=== PATIENT | female | born 1970 | race Caucasian/White ===

== ENCOUNTER 2020-02-06 07:03 | Day surgery (SDC) | payer OTHER, SELFPAY ==
--- NOTE | 2020-02-05 10:29 | P.CONAN_ITS ---
Documented by User: Erin Stephens 02/05/20 10:30 HPI - Anesthesia Eval Consult details Narrative: 49yo F for colonoscopy FOR[facility] Past Medical History Medical History (Updated 02/06/20 @ 08:28 by Chio Ho) Allergic rhinitis HTN (hypertension) Hypothyroidism Morbid obesity Family History Family History (Updated 01/26/20 @ 11:31 by DEMARIO Kessler) Father Hypertension Cardiac disease Mother Hypertension Cardiac disease Smoker Cancer Maternal Aunt Breast cancer Brother Asthma Surgical History Surgical History History of tonsillectomy Hx of myringotomy Social History Social History Smoking Status: Never smoker Second Hand Smoke Exposure: No Use of substances other than those prescribed or required for medical reasons: Yes Substance Use Frequency: Occasionally Have you been hit, kicked, punched, or otherwise hurt by someone within the past year? If so, by whom?: No Advance Directives: No Advance Directives Information Provided: Yes Meds Allergies Allergy/AdvReac Type Severity Reaction Status Date / Time No Known Allergies Allergy Verified 01/26/20 11:28 Home Medications Medication Instructions Recorded Confirmed Type hydrochlorothiazide 1 tab PO DAILY 02/02/20 02/06/20 History levothyroxine 1 tab PO DAILY 02/02/20 02/02/20 History lisinopril 1 tab PO DAILY 02/02/20 02/02/20 History Exam Exam Date and Time: February 05, 2020 1029 Assessment and Plan Assessment Anesthesia Assessment: Chart Reviewed Documented by User: Chio Ho 02/06/20 08:36 [facility] Past Medical History Medical History (Updated 02/06/20 @ 08:28 by Chio Ho) Allergic rhinitis HTN (hypertension) Hypothyroidism Morbid obesity Family History Family History (Updated 01/26/20 @ 11:31 by DEMARIO Kessler) Father Hypertension Cardiac disease Mother Hypertension Cardiac disease Smoker Cancer Maternal Aunt Breast cancer Brother Asthma Family history of problems with anesthesia: No Surgical History Surgical History History of tonsillectomy Hx of myringotomy History of Problems with Anesthesia: No Social History Social History Smoking Status: Never smoker Second Hand Smoke Exposure: No Use of substances other than those prescribed or required for medical reasons: Yes Substance Use Frequency: Occasionally Have you been hit, kicked, punched, or otherwise hurt by someone within the past year? If so, by whom?: No Advance Directives: No Advance Directives Information Provided: Yes Meds Allergies Allergy/AdvReac Type Severity Reaction Status Date / Time No Known Allergies Allergy Verified 01/26/20 11:28 Home Medications Medication Instructions Recorded Confirmed Type hydrochlorothiazide 1 tab PO DAILY 02/02/20 02/06/20 History levothyroxine 1 tab PO DAILY 02/02/20 02/02/20 History lisinopril 1 tab PO DAILY 02/02/20 02/02/20 History Exam Height,Weight and Vital Signs: Vital Signs Temp Pulse Resp BP Pulse Ox 02/06/20 07:36 97.0 F 80 18 113/73 97 Pertinent Lab Results Pertinent Lab Results: Denies . Airway Mallampati Class: II TM Dist: >3cm Heart: RRR Lungs: CTAB. Diminished. Assessment and Plan Assessment Anesthesia Assessment: Anesthesia Plan Discussed and Chart Reviewed Final Anesthetic Review NPO: Yes ASA Class: III Final Preanesthetic Review: No Changes in Pt Med Stat, Meds/Allgs Chart Reviewed, Consent Obtained/Reviewed and Anes Risks/Benef Reviewed Patient Risk: Intermediate Procedure Risk: Low Anesthetic Plan Anesthetic Plan: MAC: Disposition: Standard PACU
[2020-02-06 07:25] VITALS: BMI 54.9
[2020-02-06 07:36] VITALS: BP 113/73; PULSE 80; RESP 18; TEMP 36.1; O2SAT 97
[2020-02-06] MEDS: Lactated Ringers 1,000 ML 100 ML IVCONT (07:55)
--- NOTE | 2020-02-06 09:17 | MHC.SHP ---
Pre-Procedural Eval Section A The patient is an INPATIENT: No The History & Physical has been completed within 30 days and I have reviewed it.: No Section B Chief Complaint: Screening Details of Present Illness: Colon cancer screening. No changes from April Preop Relevant Family History (Specify if Yes): No Relevant Social History: None Present Medications: see Short Stay Collaborative assessment Medical History: Significant History (Morbid Obesity, Hypertension Hypothyroid) History of Previous Operations: No relevant previous surgery Allergies: Allergies Allergy/AdvReac Type Severity Reaction Status Date / Time No Known Allergies Allergy Verified 01/26/20 11:28 Review of Systems Sugical H&P ROS: Negative: Constitution, Cardiovascular, Respiratory, Allergic/Immunologic and Gastrointestinal Review of Systems Comment: General ROS is negative Exam Surgical H&P Exam: Normal: HEENT, Normal: Heart, Normal: Lungs and Normal: Extremities Plan Diagnosis/Plan: Unchanged Patient has been examined and remains a candidate for the planned procedure--YES
--- NOTE | 2020-02-06 09:28 | PM.PROC ---
Brief Operative Note Date of procedure: 02/06/20 Pre-op diagnosis: Colon Cancer Screening; Morbid Obesity Post-op diagnosis: other (NORMAL EXAM) Procedure: Colonoscopy Anesthesia: MAC ([place]) Surgeon: Claudette Reyes Estimated blood loss (mL): 0 Pathology: none sent Condition: stable Disposition: PACU
[2020-02-06 10:01] VITALS: BP 116/67; PULSE 80; RESP 16; TEMP 36.7; O2SAT 99
[2020-02-06 10:11] VITALS: BP 125/67; PULSE 65; RESP 18; TEMP 36.6; O2SAT 98
--- NOTE | 2020-02-06 10:23 | HO.POSTANES ---
Post Anesthesia Evaluation Post Anesthesia Evaluation Vital Signs: Vital Signs Temp Pulse Resp BP Pulse Ox 02/06/20 10:11 98 F 65 18 125/67 98 02/06/20 10:01 98.1 F 80 16 116/67 99 02/06/20 07:36 97.0 F 80 18 113/73 97 Anesthesia: Monitored Mental Status: Awake Pain Control: Satisfactory Nausea/Vomiting: None Hydration: Adequate Anesthesia-Related Issues: No Anes. Related Issues
--- NOTE | 2020-02-06 12:00 | OP_ITS ---
SURGEON: Claudette Reyes MD PREOPERATIVE DIAGNOSIS: Colon cancer screening, morbid obesity. POSTOPERATIVE DIAGNOSIS: Colonoscopically negative, Question raised of significant Sleep Apnea. PROCEDURE PERFORMED: Colonoscopy. ESTIMATED BLOOD LOSS: No blood loss. COMPLICATIONS: No complications. ANESTHESIA: Monitored. ANESTHESIOLOGIST: Jorge Gray CRNA.. ASSISTANTS: No assistant professor of mathematics. SPECIMENS:NONE AIR DEODORIZER SERVICER: Dr. Reyes. CONDITION: Postprocedure, stable. FINDINGS: Digital rectal exam revealed sphincter tone to be adequate. Video colonoscope was introduced without difficulty, navigated into the rectosigmoid area. There were telescoping of the sigmoid colon with some suggestion of possibility of prolapse present. The scope was slowly moved through that area and up to the descending, transverse, ascending colon, down into the cecal cap. Appendiceal orifice was seen. Ileocecal valve was well seen. The prep was excellent. Slow rotational views on withdrawing the scope, no mucosal lesions were seen. Anorectal verge was clear. PLAN AND CURRENT RECOMMENDATIONS: Repeat asymptomatic screening in a non-high risk patient with no family history in this 10 years. NOTE, this patient does appear to have significant Sleep Apnea: Consideration for sleep study to be ordered. SPECIMEN: No specimen was removed. GRAFT OR IMPLANTS: No grafts or implants. Claudette Reyes MD MEN/MODL / [id number] MTDD
== END 2020-02-06 10:55 | disposition home or self-care (01) ==
PROVIDERS: PCP Internal Medicine; Visit Provider Internal Medicine Gastroenterology
PROC: 0DJD8ZZ Inspection of Lower Intestinal Tract, Via Natural or Artificial Opening Endoscopic (ICD-10-PCS; CPT 45378; principal; 2020-02-06 08:20)
DX: Z12.11 Encounter for screening for malignant neoplasm of colon (principal); E66.01 Morbid (severe) obesity due to excess calories; I10 Essential (primary) hypertension; E03.9 Hypothyroidism, unspecified; Z79.899 Other long term (current) drug therapy
CPT/HCPCS: 45378

== ENCOUNTER → 2020-03-11 08:40 | Outpatient (BNVA) | payer OTHER, SELFPAY | PROVIDERS: PCP Internal Medicine; Referring Provider Internal Medicine; Visit Provider Physician Assistant | DX: Z76.89 Persons encountering health services in other specified circumstances (principal) ==

== ENCOUNTER 2020-12-03 09:44 | Outpatient (REF) | payer OTHER, SELFPAY ==
--- NOTE | ~2020-12-03 | MM_ITS ---
EXAMINATION: MM SCREENING DIGITAL BREAST TOMOSYNTHESIS, BILATERAL CLINICAL INFORMATION: Screening. Asymptomatic. The lifetime risk of breast cancer based on the Tyrer-Cuzick Model is 14%. COMPARISON: Mammography: 07/05/2019, 06/28/2018, 06/14/2017 TECHNIQUE: Digital breast tomosynthesis is performed in both the craniocaudal and mediolateral oblique views along with computer-aided detection (CAD). Synthesized 2D images are generated from the tomosynthesis. Additional bilateral CC views are provided. FINDINGS: The breasts are almost entirely fatty (ACR BI-RADS breast composition Category a). There are no significant masses, abnormal calcifications, or other abnormalities. The axilla and skin contours are unremarkable. No significant changes. MM/MM tomosynthesis screening BI IMPRESSION: No mammographic evidence of malignancy. ASSESSMENT: BI-RADS 1: Negative RECOMMENDATION: Routine annual mammography screening. This patient's information was entered into a reminder system with a target due date for their next mammogram.
== END 2020-12-03 09:45 | disposition home or self-care (01) ==
LOC: HO.MAMMO 09:44
PROVIDERS: PCP Internal Medicine; Visit Provider Internal Medicine
DX: Z12.31 Encounter for screening mammogram for malignant neoplasm of breast (principal)
CPT/HCPCS: 77063; 77067

== ENCOUNTER 2021-03-04 13:57 | Outpatient (REF) | payer OTHER, SELFPAY ==
[2021-03-04 16:30] LABS: MANUAL DIFF FLAG NO
[2021-03-04 16:33] LABS: Basophils Percent Auto 0.6 % (0-2); Eosinophils Absolute Auto 0.2 X10*3/uL (0.0-0.4); Eosinophils Percent Auto 3.7 % (0-4); Hematocrit 39.5 % (37.0-47.0); Hemoglobin 12.7 g/dl (12.0-16.0); Imm Gran Abs Auto 0.02 X10*3/uL (0.00-0.03); Imm Gran Pct Auto 0.4 % (0.0-0.4); Lymphocytes Absolute Auto 1.6 X10*3/uL (1.2-4.9); Mean Corpuscular HGB Conc 32.2 g/dl (31.0-35.0); Mean Corpuscular Hemoglobin 28.2 pg (27.0-33.0); Mean Corpuscular Volume 87.8 fL (80.0-98.0); Mean Platelet Volume 9.3 fL (9.4-12.3); Monocytes Absolute Auto 0.5 X10*3/uL (0.1-1.2); Monocytes Percent Auto 9.5 % (2-11); Neutrophils Absolute Auto 2.6 x10*3/uL (2.0-8.3); Neutrophils Percent Auto 53.8 % (45-73); Platelet Count 275 X10*3/uL (160-400); Red Cell Distribution Width 13.3 % (11.0-16.0); White Blood Count 4.9 X10*3/uL (4.8-10.8)
[2021-03-04 17:08] LABS: Alanine Aminotransferase 27 U/L (0-31); Albumin Level 4.2 g/dL (3.5-5.0); Alkaline Phosphatase 65 U/L (39-117); Anion Gap 13 (12-20); Aspartate Amino Transferase 29 U/L (5-31); Bilirubin Total 0.6 mg/dL (0.0-1.0); Blood Urea Nitrogen 16 mg/dL (9-16); Calcium 9.4 mg/dL (8.4-10.2); Carbon Dioxide 30 mmol/L (22-29); Chloride 102 mmol/L (96-108); Cholesterol 161 mg/dL; Estimated Glomerular Filt Rate > 60; Glucose Fasting 98 mg/dL (60-99); HDL Cholesterol 47 mg/dL; LDL Cholesterol Calculated 88 mg/dl; Potassium 3.6 mmol/L (3.3-5.1); Sodium 141 mmol/L (135-145); Triglycerides 132 mg/dL
[2021-03-04 17:29] LABS: Thyroid Stimulating Hormone 1.54 uIU/mL (0.32-4.0)
== END 2021-03-04 13:58 | disposition home or self-care (01) ==
LOC: HO.HMGCLDS 13:57
PROVIDERS: PCP Internal Medicine; Visit Provider Internal Medicine
DX: Z00.00 Encounter for general adult medical examination without abnormal findings (principal); E03.9 Hypothyroidism, unspecified; E11.9 Type 2 diabetes mellitus without complications
CPT/HCPCS: 36415; 80053; 80061; 84443; 85025

== ENCOUNTER 2021-03-06 14:48 | Outpatient (REF) | payer OTHER, SELFPAY ==
--- NOTE | ~2021-03-06 | XR_ITS ---
EXAMINATION: XR KNEE, LEFT CLINICAL INFORMATION: Knee pain. COMPARISON: Standing view both knees 07/27/2016. TECHNIQUE: Four views of the left knee. FINDINGS: Again seen is narrowing in the left knee, slightly increased when compared to the prior. A definite joint effusion is not seen. No acute finding is present. XR/XR knee LT 2V IMPRESSION: Degenerative changes with mildly progressive narrowing of the medial compartment since 07/27/2016.
== END 2021-03-06 14:49 | disposition home or self-care (01) ==
LOC: HO.XRAY 14:48
PROVIDERS: PCP Internal Medicine; Visit Provider Internal Medicine
DX: M25.562 Pain in left knee (principal)
CPT/HCPCS: 73560

== ENCOUNTER 2021-04-10 09:48 | Outpatient (REF) | payer OTHER, SELFPAY ==
[2021-04-10 11:46] LABS: COVID-19 Test Positive (Negative); IDNOW Serial# 16C4AD1C
== END 2021-04-10 09:49 | disposition home or self-care (01) ==
LOC: HO.LAB 09:48
PROVIDERS: Visit Provider Internal Medicine
DX: Z20.822 Contact with and (suspected) exposure to COVID-19 (principal)
CPT/HCPCS: 36415; 87635; C9803

== ENCOUNTER 2021-05-02 07:37 | Outpatient (REF) | payer OTHER, SELFPAY ==
--- NOTE | ~2021-05-02 | XR_ITS ---
EXAMINATION: LEFT KNEE AND BILATERAL AP KNEE STANDING. CLINICAL INFORMATION: Pain left knee. COMPARISON: Left knee 03/06/2021 TECHNIQUE: AP bilateral knee standing. Left knee 2 views FINDINGS: AP bilateral knee: There is bilateral knee and genu varus deformity with moderate loss of medial and mild to moderate loss of lateral compartment joint space. No visible fracture or loose body seen. No bony erosive changes. The soft tissues are normal. Left knee: The patellofemoral compartment joint space is normal. No visible fracture, dislocation or bony erosive changes seen. XR/XR knee LT 2V IMPRESSION: Moderate medial compartment and mild lateral compartment degenerative arthritic changes both knees. There is no visible acute fracture or dislocation joint effusion left knee.
--- NOTE | ~2021-05-02 | XR_ITS ---
EXAMINATION: LEFT KNEE AND BILATERAL AP KNEE STANDING. CLINICAL INFORMATION: Pain left knee. COMPARISON: Left knee 03/06/2021 TECHNIQUE: AP bilateral knee standing. Left knee 2 views FINDINGS: AP bilateral knee: There is bilateral knee and genu varus deformity with moderate loss of medial and mild to moderate loss of lateral compartment joint space. No visible fracture or loose body seen. No bony erosive changes. The soft tissues are normal. Left knee: The patellofemoral compartment joint space is normal. No visible fracture, dislocation or bony erosive changes seen. XR/XR knee standing BI IMPRESSION: Moderate medial compartment and mild lateral compartment degenerative arthritic changes both knees. There is no visible acute fracture or dislocation joint effusion left knee.
== END 2021-05-02 07:38 | disposition home or self-care (01) ==
LOC: HO.HOSX 07:37
PROVIDERS: Visit Provider Physician Assistant
DX: E66.01 Morbid (severe) obesity due to excess calories (principal); M25.561 Pain in right knee; M17.12 Unilateral primary osteoarthritis, left knee; G47.30 Sleep apnea, unspecified; E03.9 Hypothyroidism, unspecified; I10 Essential (primary) hypertension; Z79.899 Other long term (current) drug therapy; Z71.3 Dietary counseling and surveillance
CPT/HCPCS: 20610; 73560; 73565; J1040

== ENCOUNTER → 2021-05-22 14:53 | Outpatient (BNVA) | payer OTHER, SELFPAY | PROVIDERS: PCP Internal Medicine; Referring Provider Internal Medicine; Visit Provider Dietitian, Registered | DX: E66.01 Morbid (severe) obesity due to excess calories (principal); Z68.43 Body mass index [BMI] 50.0-59.9, adult | CPT/HCPCS: 97802 ==

== ENCOUNTER → 2021-06-02 13:20 | Outpatient (BNVA) | payer OTHER, SELFPAY | PROVIDERS: PCP Internal Medicine; Referring Provider Internal Medicine; Visit Provider Physician Assistant ==

== ENCOUNTER 2021-06-17 08:16 | Outpatient (REF) | payer OTHER, SELFPAY ==
--- NOTE | ~2021-06-17 | US_ITS ---
EXAMINATION: US COMPLETE ABDOMEN WITH LIVER ELASTOGRAPHY CLINICAL INFORMATION: Obesity COMPARISON: None. TECHNIQUE: Real-time imaging of the abdominal viscera. Noninvasive ultrasound liver fibrosis assessment is performed using Genny ElastPQ point quantification shear wave elastography (2D-SWE) with a C5-2 MHz transducer. Multiple elastography samples are obtained. FINDINGS: PANCREAS: Normal. ABDOMINAL AORTA: The proximal, middle, and distal aortic segments are normal in caliber. INFERIOR VENA CAVA: Visualized portions are normal. LIVER: Liver echotexture is increased. The liver demonstrates contour. No focal lesion or intrahepatic biliary duct dilatation. The right lobe measures 18 cm in length. The left lobe measures 11 cm in length. Portal flow is normal/hepatopedal Shear wave liver elastography median stiffness is 1.6 m/s (reference: normal median stiffness is 1.3 m/s or less). IQR/median stiffness to assess sampling precision is 0.04 (reference: good quality data set is IQR/median stiffness of 0.15 or less). GALLBLADDER: Normal. The gallbladder is physiologically distended without evidence of stones, sludge, polyps, wall thickening or pericholecystic fluid. COMMON BILE DUCT: Normal in caliber measuring 0.4 cm in diameter. RIGHT KIDNEY: Normal. No hydronephrosis. No renal calculi or focal parenchymal lesions. The kidney measures 11 cm in maximum dimension. LEFT KIDNEY: Normal. No hydronephrosis. No renal calculi or focal parenchymal lesions. The kidney measures 10 cm in maximum dimension. SPLEEN: Normal. The spleen measures 10 cm in maximum dimension. FREE FLUID: None. US/US abdomen comp w elastography IMPRESSION: 1. Impression: Echogenic liver probably representing fatty infiltration. 2. Liver elastography: Adequate liver sampling. In the absence of other known clinical signs, rules out compensated advanced chronic liver disease. REFERENCE: Society of Radiologists in Ultrasound Liver Stiffness Thresholds (2020): LIVER STIFFNESS THRESHOLDS: *Liver Stiffness equal or less than 1.3 m/s: High probability of being normal. *Liver Stiffness less than 1.7 m/s: In the absence of other known clinical signs, rules out compensated advanced chronic liver disease. *Liver Stiffness 1.7-2.1 m/s: Suggestive of compensated advanced chronic liver disease but need further test for confirmation. *Liver Stiffness over 2.1 m/s: Rules in compensated advanced chronic liver disease. *Liver Stiffness over 2.4 m/s: Suggestive of clinically significant portal hypertension. QUALITY OF DATA SET: *IQR/Median value equal or less than 0.15 implies a quality data set. *IQR/Median value over 0.15 implies a poor quality data set. SIGNIFICANT CHANGE FROM PRIOR EXAM: Significant change if liver stiffness measurement is 10% or greater from prior exam. OTHER CONSIDERATIONS: The stage of liver fibrosis may be overestimated in the setting of acute hepatitis, liver inflammation, elevated liver function tests, hepatic vascular congestion, obstructive cholestasis, non-fasting state, and infiltrative diseases such as amyloidosis and lymphoma. In some patients with NAFLD, the liver stiffness thresholds for compensated advanced chronic liver disease may be lower. In causes other than viral hepatitis and NAFLD, liver stiffness thresholds are not well established.
--- NOTE | ~2021-06-17 | FL_ITS ---
EXAMINATION: XR FLUOROSCOPY UPPER GI WITH AIR CLINICAL INFORMATION: Essential hypertension. Preop. COMPARISON: None TECHNIQUE: Routine upper GI air-contrast study was performed. FINDINGS: Following oral administration of thick barium and effervescent granules there is normal propagation of bolus from the oral cavity through the pharynx, esophagus into stomach without any evidence of obstruction, narrowing or stricture. On placing patient supine and prone the course, caliber and peristalsis of the stomach and duodenal bulb is normal. There is mild gastroesophageal reflux but no hiatal hernia seen. The mucosal pattern of the stomach and the duodenum is normal. FLUOROSCOPY TIME: 1.1 minute DOSE AREA PRODUCT: 37.008 uGy-m2 (microgray-meter squared) FL/FL upper GI w air IMPRESSION: Mild gastroesophageal reflux. No hiatal hernia seen.
--- NOTE | ~2021-06-17 | XR_ITS ---
EXAMINATION: XR CHEST CLINICAL INFORMATION: Hypertension COMPARISON: None TECHNIQUE: 2 views of the chest were obtained. FINDINGS: The cardiac and mediastinal contours are normal. The lungs are clear. There is no pleural effusion or pneumothorax. There are mild degenerative changes of the spine. XR/XR chest 2V IMPRESSION: No evidence for acute disease in the chest.
--- NOTE | 2021-06-17 10:16 | ECG_ITS ---
Test Reason : HTN Blood Pressure : / mmHG Vent. Rate : 058 BPM Atrial Rate : 058 BPM P-R Int : 152 ms QRS Dur : 088 ms QT Int : 412 ms P-R-T Axes : 053 053 051 degrees QTc Int : 404 ms Sinus bradycardia with sinus arrhythmia Otherwise normal ECG When compared with ECG of 25-OCT-2014 16:51, No significant change was found Referred By: Irma Bolanos Electronically Signed By:Ludin Maya
[2021-06-17 11:15] LABS: Estimated Average Glucose 103 mg/dL; Hemoglobin A1c % 5.2 %
[2021-06-17 11:56] LABS: C Reactive Protein 0.41 mg/dL (< or = 0.50); Cholesterol 143 mg/dL; HDL Cholesterol 39 mg/dL; Iron 83 mcg/dL (30-160); LDL Cholesterol Calculated 86 mg/dl; Percent Iron Saturation 25 % (15-50); Total Iron Binding Capacity 334 mcg/dL (228-428); Triglycerides 93 mg/dL; Unsaturated Iron Binding 251 ug/dL
[2021-06-17 12:07] LABS: Ferritin 130 ng/mL (10-250); Insulin 13 uU/mL (2-29); Vitamin D 25-OH Total 14.2 ng/mL (>30)
[2021-06-17 12:37] LABS: Folate 7.2 ng/mL (> or = 4.0); Vitamin B12 488 pg/mL (200-900)
[2021-06-18 17:19] LABS: H Pylori Breath Test Negative (Negative)
[2021-06-19 15:06] LABS: Calcium (PTHI) 10.1 mg/dL (8.6-10.4); PTHI 40 pg/mL (14-64)
[2021-06-20 01:31] LABS: Zinc 62 mcg/dL (60-130)
[2021-06-20 20:35] LABS: Vitamin A 40 mcg/dL (38-98)
[2021-06-21 11:30] LABS: Vitamin B1 7 nmol/L (8-30)
== END 2021-06-17 08:17 | disposition home or self-care (01) ==
LOC: HO.US 08:16
PROVIDERS: PCP Internal Medicine; Visit Provider Physician Assistant
DX: Z01.818 Encounter for other preprocedural examination (principal); I10 Essential (primary) hypertension
CPT/HCPCS: 36415; 71046; 74246; 76705; 76981; 80061; 82306; 82607; 82728; 82746; 83013; 83036; 83525; 83540; 83970; 84425; 84590; 84630; 86140; 93005

== ENCOUNTER 2021-07-14 15:47 | Outpatient (REF) | payer OTHER, SELFPAY ==
[2021-07-14 16:46] LABS: MANUAL DIFF FLAG NO
[2021-07-14 17:54] LABS: Basophils Percent Auto 0.4 % (0-2); Eosinophils Absolute Auto 0.1 X10*3/uL (0.0-0.4); Eosinophils Percent Auto 1.9 % (0-4); Hematocrit 43.6 % (37.0-47.0); Hemoglobin 13.8 g/dl (12.0-16.0); Imm Gran Abs Auto 0.01 X10*3/uL (0.00-0.03); Imm Gran Pct Auto 0.1 % (0.0-0.4); Lymphocytes Absolute Auto 2.3 X10*3/uL (1.2-4.9); Lymphocytes Percent Auto 32.2 % (20-40); Mean Corpuscular HGB Conc 31.7 g/dl (31.0-35.0); Mean Corpuscular Hemoglobin 27.9 pg (27.0-33.0); Mean Corpuscular Volume 88.1 fL (80.0-98.0); Mean Platelet Volume 9.8 fL (9.4-12.3); Monocytes Absolute Auto 0.6 X10*3/uL (0.1-1.2); Monocytes Percent Auto 8.4 % (2-11); Platelet Count 282 X10*3/uL (160-400); Red Blood Count 4.95 X10*6/uL (4.20-5.50); Red Cell Distribution Width 13.8 % (11.0-16.0)
[2021-07-14 18:15] LABS: Alanine Aminotransferase 22 U/L (0-31); Albumin Level 4.5 g/dL (3.5-5.0); Alkaline Phosphatase 61 U/L (39-117); Anion Gap 14 (12-20); Aspartate Amino Transferase 23 U/L (5-31); Bilirubin Total 0.5 mg/dL (0.0-1.0); Blood Urea Nitrogen 24 mg/dL (9-16); Calcium 10.1 mg/dL (8.4-10.2); Carbon Dioxide 29 mmol/L (22-29); Chloride 101 mmol/L (96-108); Estimated Glomerular Filt Rate > 60; Glucose Random 84 mg/dL (60-115); Sodium 140 mmol/L (135-145); Total Protein 7.8 g/dL (6.5-8.0)
[2021-07-14 18:50] LABS: Folate 6.4 ng/mL (> or = 4.0); Vitamin B12 621 pg/mL (200-900)
[2021-07-18 01:06] LABS: Zinc 68 mcg/dL (60-130)
[2021-07-19 17:02] LABS: Vitamin A 44 mcg/dL (38-98)
[2021-07-20 04:37] LABS: Vitamin B1 11 nmol/L (8-30)
== END 2021-07-14 15:48 | disposition home or self-care (01) ==
LOC: HO.LAB 15:47
PROVIDERS: PCP Internal Medicine; Referring Provider Internal Medicine; Visit Provider Physician Assistant
DX: Z00.00 Encounter for general adult medical examination without abnormal findings (principal); E66.01 Morbid (severe) obesity due to excess calories; Z68.43 Body mass index [BMI] 50.0-59.9, adult; E03.9 Hypothyroidism, unspecified; I10 Essential (primary) hypertension
CPT/HCPCS: 36415; 80053; 82607; 82746; 84425; 84443; 84590; 84630; 85025

== ENCOUNTER → 2021-07-30 08:11 | Outpatient (BNVA) | payer OTHER, SELFPAY | PROVIDERS: PCP Internal Medicine; Visit Provider Surgery | DX: Z13.89 Encounter for screening for other disorder (principal) ==

== ENCOUNTER → 2021-08-12 08:06 | Outpatient (BNVA) | payer OTHER, SELFPAY | PROVIDERS: PCP Internal Medicine; Referring Provider Internal Medicine; Visit Provider Surgery | DX: Z13.89 Encounter for screening for other disorder (principal) ==

== ENCOUNTER → 2021-08-25 08:10 | Outpatient (BNVA) | payer OTHER, SELFPAY | PROVIDERS: PCP Internal Medicine; Visit Provider Surgery | DX: E66.01 Morbid (severe) obesity due to excess calories (principal); I10 Essential (primary) hypertension; E03.9 Hypothyroidism, unspecified; K21.9 Gastro-esophageal reflux disease without esophagitis; R11.0 Nausea; Z01.818 Encounter for other preprocedural examination ==

== ENCOUNTER → 2021-08-29 12:46 | Outpatient (BNVA) | payer OTHER, SELFPAY | PROVIDERS: PCP Internal Medicine; Referring Provider Internal Medicine; Visit Provider Surgery | DX: Z13.89 Encounter for screening for other disorder (principal) ==

== ENCOUNTER 2021-09-04 08:02 | Day surgery (SDC) | payer OTHER, SELFPAY ==
[2021-08-26 06:14] LABS: MANUAL DIFF FLAG NO
[2021-08-26 07:27] LABS: Basophils Percent Auto 0.5 % (0-2); Eosinophils Absolute Auto 0.1 X10*3/uL (0.0-0.4); Eosinophils Percent Auto 2.2 % (0-4); Hematocrit 41.4 % (37.0-47.0); Hemoglobin 13.3 g/dl (12.0-16.0); Imm Gran Abs Auto 0.01 X10*3/uL (0.00-0.03); Imm Gran Pct Auto 0.2 % (0.0-0.4); Lymphocytes Absolute Auto 1.5 X10*3/uL (1.2-4.9); Lymphocytes Percent Auto 37.2 % (20-40); Mean Corpuscular HGB Conc 32.1 g/dl (31.0-35.0); Mean Corpuscular Hemoglobin 28.3 pg (27.0-33.0); Mean Corpuscular Volume 88.1 fL (80.0-98.0); Mean Platelet Volume 9.8 fL (9.4-12.3); Monocytes Absolute Auto 0.4 X10*3/uL (0.1-1.2); Monocytes Percent Auto 10.5 % (2-11); Neutrophils Percent Auto 49.4 % (45-73); Platelet Count 254 X10*3/uL (160-400); Red Cell Distribution Width 13.2 % (11.0-16.0); White Blood Count 4.1 X10*3/uL (4.8-10.8)
[2021-08-26 07:33] LABS: INTERNATIONAL NORM RATIO 1.1 (0.9-1.1); Prothrombin Time 12.6 SEC (9.9-13.0)
[2021-08-26 07:35] LABS: Alanine Aminotransferase 16 U/L (0-31); Alkaline Phosphatase 47 U/L (39-117); Anion Gap 12 (12-20); Aspartate Amino Transferase 23 U/L (5-31); Bilirubin Total 0.6 mg/dL (0.0-1.0); Blood Urea Nitrogen 14 mg/dL (9-16); C Reactive Protein 0.52 mg/dL (< or = 0.50); Calcium 9.9 mg/dL (8.4-10.2); Carbon Dioxide 31 mmol/L (22-29); Chloride 102 mmol/L (96-108); Cholesterol 139 mg/dL; Estimated Glomerular Filt Rate > 60; Glucose Random 86 mg/dL (60-115); HDL Cholesterol 40 mg/dL; LDL Cholesterol Calculated 86 mg/dl; Sodium 141 mmol/L (135-145); Total Protein 6.9 g/dL (6.5-8.0); Triglycerides 68 mg/dL
[2021-08-26 07:36] LABS: Partial Thromboplastin Time 39.8 SEC (24.1-38.0)
[2021-08-26 07:54] LABS: Estimated Average Glucose 97 mg/dL
[2021-08-26 07:55] LABS: Insulin 7 uU/mL (2-29); TSH reflex Free T4 3.57 uIU/mL (0.32-4.0)
[2021-08-27 12:56] VITALS: BMI 48.4
--- NOTE | 2021-09-03 09:18 | P.CONAN_ITS ---
Documented by User: Erin Stephens NP 09/03/21 09:21 HPI - Anesthesia Eval Consult details Narrative: 51yo F for Gastrectomy Sleeve,EGD,poss diaphragmatic hernia,poss ventral hernia,poss open, PMFSH Active Problems Active Problems: All Active Problems (Updated 08/27/21 @ 12:55 by Radha Velasquez RN) Morbid obesity (Acute) Normal colonoscopy (Acute) Sleep apnea (Acute) Sprain of left knee (Acute) Tendinitis of elbow (Acute) Knee pain (Acute) Arthritis of knee, left (Acute) Routine physicl lab exam (Acute) Hypertension (Acute) Hypothyroidism (Acute) Abdominal pain (Acute) Dysthymia (Acute) GERD (gastroesophageal reflux disease) (Acute) Morbid obesity (Acute) HTN (hypertension) (Acute) Hypothyroidism (Acute) Past Medical History Medical History (Updated 09/04/21 @ 16:20 by Oliver Whitley MD) Allergic rhinitis Allergy-induced asthma COVID-19 vaccine series completed GERD (gastroesophageal reflux disease) HTN (hypertension) Hypothyroidism Morbid obesity Family History Family History Father Hypertension Cardiac disease Mother Hypertension Cardiac disease Smoker Cancer Maternal Aunt Breast cancer Brother Asthma Substance use disorder Family history of problems with anesthesia: No Surgical History Surgical History H/O colonoscopy History of tonsillectomy Hx of myringotomy S/P laparoscopic sleeve gastrectomy History of Problems with Anesthesia: No Social History Social History Housing: House Are you a primary childbirth and infant care teacher to a significant other at home: No Do you presently have visiting nurse or other home services: No Patient Tobacco Use Status: Never used Tobacco e-Cigarette/Vaping Use: Never Used Second Hand Smoke Exposure: No service: No Current occupational status: employed Cognitive needs: No Hearing needs: No Vision needs: No Meds Allergies Allergy/AdvReac Type Severity Reaction Status Date / Time No Known Allergies Allergy Verified 09/09/21 15:01 Home Medications Medication Instructions Recorded Confirmed Last Taken Type cetirizine 10 mg capsule (All Day 10 mg PO DAILY PRN 06/02/21 09/04/21 Unknown History Allergy (cetirizine)) cholecalciferol (vitamin D3) 50 1 cap PO DAILY 09/04/21 09/04/21 Unknown History mcg (2,000 unit) capsule cyanocobalamin (vitamin B-12) 250 1 tab DAILY 09/04/21 09/04/21 Unknown History mcg tablet (Vitamin B-12) lisinopril 10 mg tablet 10 mg PO DAILY 09/04/21 09/04/21 Unknown History ondansetron HCl 4 mg tablet 4 mg PO Q12H PRN 09/04/21 09/04/21 Unknown History Exam Exam Date and Time: September 03, 2021 0918 Height,Weight and Vital Signs: Height 5 ft 3 in Weight 123.967 kg Pertinent Lab Results Pertinent Lab Results: Laboratory Tests 08/26/21 08/26/21 08/26/21 06:09 06:11 06:11 WBC 4.1 L RBC 4.70 Hgb 13.3 Hct 41.4 MCV 88.1 MCH 28.3 MCHC 32.1 RDW 13.2 Plt Count 254 MPV 9.8 Immature Gran % (Auto) 0.2 Neut % (Auto) 49.4 Lymph % (Auto) 37.2 Hickman % (Auto) 10.5 Eos % (Auto) 2.2 Baso % (Auto) 0.5 Lymph # (Auto) 1.5 Hickman # (Auto) 0.4 Eos # (Auto) 0.1 Baso # (Auto) 0.0 Abs Immat Gran (auto) 0.01 Absolute Neuts (auto) 2.0 Absolute Nucleated RBC 0.000 Nucleated RBC % (auto) 0.0 PT 12.6 INR 1.1 APTT 39.8 H Sodium Potassium Chloride Carbon Dioxide Anion Gap BUN Creatinine Estim Creat Clear Calc Estimated GFR Random Glucose Estimat Average Glucose Hemoglobin A1c % Insulin Level Calcium Total Bilirubin AST ALT Alkaline Phosphatase C-Reactive Protein Total Protein Albumin Triglycerides Cholesterol LDL Cholesterol, Calc HDL Cholesterol TSH Blood Type O Negative Antibody Screen NEGATIVE 08/26/21 08/26/21 06:11 06:11 WBC RBC Hgb Hct MCV MCH MCHC RDW Plt Count MPV Immature Gran % (Auto) Neut % (Auto) Lymph % (Auto) Hickman % (Auto) Eos % (Auto) Baso % (Auto) Lymph # (Auto) Hickman # (Auto) Eos # (Auto) Baso # (Auto) Abs Immat Gran (auto) Absolute Neuts (auto) Absolute Nucleated RBC Nucleated RBC % (auto) PT INR APTT Sodium 141 Potassium 4.0 Chloride 102 Carbon Dioxide 31 H Anion Gap 12 BUN 14 Creatinine 0.88 Estim Creat Clear Calc TNP Estimated GFR > 60 Random Glucose 86 Estimat Average Glucose 97 Hemoglobin A1c % 5.0 Insulin Level 7 Calcium 9.9 Total Bilirubin 0.6 AST 23 ALT 16 Alkaline Phosphatase 47 D C-Reactive Protein 0.52 H Total Protein 6.9 Albumin 4.0 Triglycerides 68 Cholesterol 139 LDL Cholesterol, Calc 86 HDL Cholesterol 40 TSH 3.57 Blood Type Antibody Screen Narrative Narrative: EKG 06/2021 Vent. Rate : 058 BPM ? ? Atrial Rate : 058 BPM ?? P-R Int : 152 ms? QRS Dur : 088 ms ? ? QT Int : 412 ms ? ? ? P-R-T Axes : 053 053 051 degrees ?? QTc Int : 404 ms ? Sinus bradycardia with sinus arrhythmia Otherwise normal ECG When compared with ECG of 25-OCT-2014 16:51, No significant change was found Assessment and Plan Assessment Anesthesia Assessment: Chart Reviewed Final Anesthetic Review Family History of Problems with Anesthesia: No History of Problems with Anesthesia: No Documented by User: Luis Alberto Nguyen MD 09/11/21 17:43 [facility] Past Medical History Medical History (Updated 09/04/21 @ 16:20 by Oliver Whitley MD) Allergic rhinitis Allergy-induced asthma COVID-19 vaccine series completed GERD (gastroesophageal reflux disease) HTN (hypertension) Hypothyroidism Morbid obesity Functional capacity: independent ambulation Family History Family History Father Hypertension Cardiac disease Mother Hypertension Cardiac disease Smoker Cancer Maternal Aunt Breast cancer Brother Asthma Substance use disorder Surgical History Surgical History H/O colonoscopy History of tonsillectomy Hx of myringotomy S/P laparoscopic sleeve gastrectomy Social History Social History Housing: House Are you a primary childbirth and infant care teacher to a significant other at home: No Do you presently have visiting nurse or other home services: No Patient Tobacco Use Status: Never used Tobacco e-Cigarette/Vaping Use: Never Used Second Hand Smoke Exposure: No service: No Current occupational status: employed Cognitive needs: No Hearing needs: No Vision needs: No Meds Allergies Allergy/AdvReac Type Severity Reaction Status Date / Time No Known Allergies Allergy Verified 09/09/21 15:01 Home Medications Medication Instructions Recorded Confirmed Last Taken Type cetirizine 10 mg capsule (All Day 10 mg PO DAILY PRN 06/02/21 09/04/21 Unknown History Allergy (cetirizine)) cholecalciferol (vitamin D3) 50 1 cap PO DAILY 09/04/21 09/04/21 Unknown History mcg (2,000 unit) capsule cyanocobalamin (vitamin B-12) 250 1 tab DAILY 09/04/21 09/04/21 Unknown History mcg tablet (Vitamin B-12) lisinopril 10 mg tablet 10 mg PO DAILY 09/04/21 09/04/21 Unknown History ondansetron HCl 4 mg tablet 4 mg PO Q12H PRN 09/04/21 09/04/21 Unknown History Exam Airway Mallampati Class: IV TM Dist: >3cm Neck ROM: Full Loose/Missing/Broken Teeth: Yes Heart: S1 S2 Lungs: b/l breath sounds Assessment and Plan Assessment Anesthesia Assessment: Anesthesia Plan Discussed Final Anesthetic Review NPO: Yes ASA Class: III Final Preanesthetic Review: Meds/Allgs Chart Reviewed, Consent Obtained/Reviewed and Anes Risks/Benef Reviewed Patient Risk: Intermediate Procedure Risk: Intermediate Anesthetic Plan Anesthetic Plan: GA Disposition: Inp. Admit - Standard Bed
[2021-09-03 14:26] LABS: COVID-19 Test Negative (Negative); IDNOW Serial# 9DB6401D
[2021-09-04] VITALS (15 sets, daily range): BP systolic 119–130; BP diastolic 60–75; PULSE 50–91; RESP 12–17; TEMP 36.2–36.7; O2SAT 91–100
[2021-09-04] MEDS: Lactated Ringers 1,000 ML 999 ML IV (08:44)
[2021-09-04] MEDS: Lactated Ringers 1,000 ML 100 ML IVCONT ×3 (08:44→22:43)
[2021-09-04] MEDS: ceFAZolin Sodium/Dextrose,Iso 2 GM/50 ML PIGGYBACK IV ×2 (09:04→15:20)
--- NOTE | 2021-09-04 12:11 | P.DS_ITS ---
DS: Providers Provider Date of Service: 09/05/21 Primary care physician: Doron Garcia MD DS: Summary Hospital Course Hospital Course: ADMITTING DIAGNOSIS: morbid obesity, gerd, htn, hypothyroid, concepción ? DISCHARGE DIAGNOSIS: same, s/p laparoscopic sleeve gastrectomy ? PAST SURGICAL HISTORY: none ? PROCEDURE: upper endoscopy, laparoscopic sleeve gastrectomy ? DISCHARGE SUMMARY: ? History of Present Illness: ? The patient is a?51 year-old woman with a BMI of?54.9 kg/m2 and associated co- morbidities as described above. The patient had extensive work-up,lost?33.9 lbs preoperatively and was electively scheduled for laparoscopic, possible open sleeve gastrectomy and gastropexy. Risks and complications of the surgery were discussed with the patient in advance, particularly the possibility of , pulmonary embolism, anastomotic leak, bleeding, bowel injury, GERD, cardiac, renal or pulmonary complications. The patient understood all the risks and was in agreement with the surgical plan. ? Hospital Course: ? The patient underwent an uneventful laparoscopic sleeve gastrectomy with gastropexy on the day of admission. Postoperatively, the patient was transferred to the surgical floor. The patient received IV Acetaminophen and IV dilaudid for pain control. Patient was started on bariatric phase 1 diet POD #0. On postoperative day one, the patient was feeling well without nausea, vomiting, fevers, or tachycardia. The patient had some mild incisional pain and the abdomen was soft. ? On the morning of postoperative day one, the patient was continued on 1 ounce of water or ice every half hour. During the day, the patient did fairly well, having some incisional pain, but able to ambulate adequately and to tolerate liquids well. ? Since the patient is doing well, we decided that the patient was ready to be discharged. The patient was given instructions to follow-up with me next week and to call my office for any fever over 101, persistent abdominal pain, nausea, vomiting, GERD, symptoms of DVT such as calf tenderness, or leg swelling, or pulmonary embolism such as chest pain or shortness of breath. The patient was also instructed to drink 40-60 ounces of liquids per day using the 1-ounce cups. The patient had been given prescriptions for Tylenol for pain, Zofran prn for nausea, and pantoprazole and carafate previously. The patient was encouraged to ambulate and use the incentive spirometer. The patient was allowed to shower, but no baths, and encouraged to stay active at home. All of these instructions were given to the patient personally. All questions were answered and the patient understood all instructions, the instructions were also given to the patient in print. Time Spent with Patient Time attestation: Total time spent providing and/or coordinating discharge services: Discharge coordination time: Less than 30 minutes Quality: Safe Use of Opioids Does Pt have an Active Cancer Diagnosis on the Problem List?: No Quality: Stroke Does the patient have a stroke diagnosis?: No Physical Exam Vital Signs: Vital Signs: Last Vital Signs Temp 97.2 F 09/04/21 08:09 Pulse 91 09/04/21 08:09 Resp 16 09/04/21 08:09 BP 125/65 09/04/21 08:09 Pulse Ox 98 09/04/21 08:09 BMI result Body Mass Index 48.4 DS: Data Data Completed and Pending Pending studies at discharge: Pending at discharge 09/04/21 10:55 Surgical [PTH] Routine Labs on day of discharge: Laboratory Results - last 24 hr 09/03/21 13:45 COVID-19 (PERRY) Negative COVID-19 Clin Com See Note Discharge Plan Discharge Patient Disposition: Home, Self-Care Referrals: Doron Garcia MD [Primary Care Provider] - 1 Week Discharge Medications: Continued levothyroxine 100 mcg tablet 100 mcg PO DAILY Qty: 90 8RF pantoprazole 40 mg tablet,delayed release (DR/EC) 40 mg PO DAILY Qty: 30 2RF sucralfate 100 mg/mL suspension 10 ml PO BID Qty: 400 2RF All Day Allergy (cetirizine) 10 mg capsule 10 mg PO DAILY PRN (Reason: Allergy Symptoms) 0RF Held hydrochlorothiazide 25 mg tablet 25 mg PO DAILY Qty: 90 8RF Hold Instructions: until discussed with Dr Whitley Discontinued lisinopril 10 mg tablet 10 mg PO DAILY Qty: 90 8RF cholecalciferol (vitamin D3) 50 mcg (2,000 unit) capsule 50 mcg PO DAILY Qty: 30 6RF cyanocobalamin (vitamin B-12) 250 mcg tablet 250 mcg PO DAILY Qty: 30 6RF polyethylene glycol 3350 [Miralax] 17 gram powder in packet 17 g PO DAILY Qty: 14 0RF Rx Instructions: Mix each packet with 8oz of water and do 7 packets on 09/02/21 and another 7 packets on 09/03/21 No Action cyanocobalamin (vitamin B-12) [Vitamin B-12] 250 mcg tablet 1 tab DAILY 0RF lisinopril 10 mg tablet 10 mg PO DAILY 0RF cholecalciferol (vitamin D3) 50 mcg (2,000 unit) capsule 1 cap PO DAILY 0RF ondansetron HCl 4 mg tablet 4 mg PO Q12H PRN (Reason: Nausea And Vomiting) 0RF Discharge Orders: Discharge Order (Routine); Ordered 09/05/21 Ordered By: Oliver Whitley Activity Restrictions/Additional Instructions: No tub baths, sex or returning to work until discussed at first post op appointment. No exercise, alcohol, tobacco or illegal drug use. Continue to use incentive spirometer hourly while awake. Walk in home for 5- 10 minutes every 2 hours during the first week. Follow all instructions in the bariatric handbook and call with any questions.Discharge Instructions 1. Please call your doctor or come back to the emergency room should any new symptoms arise. 2. You will receive a courtesy call from [facility] 24-48 hours after discharge. 3. Activity: abstain from alcohol, practice limited stair climbing, no bending, no driving, no exercise, no illicit substances, no lifting, no sex, no tub bath, no work. 4. Diet: continue as discussed with Dr. Whitley. 5. Dressing Change/Wound Care: Your incision is covered by clear bandages and guaze underneath. If the area is tender, you may apply an ice pack for short intervals (no more than 20 minutes on, followed by at least 20 minutes off). Do not apply heat. Do not use creams, lotions, or topical antibiotics unless instructed to do so by your surgeon. These can cause infection or allergic reaction. 6. Call your doctor if: - Your temperature exceeds 101.5 F - You experience excessive pain or swelling - You have an unexpected reaction to medication - You have excessive bleeding - You experience continued vomiting/nausea - Your incision begins to separate - Your incision shows signs of infection such as increased redness, swelling, excessive pain, heat, or drainage (light blood or clear fluid is normal) 7. General instructions: No lifting greater than 5 lbs for the next 4 weeks[address] driving within 24 hours of taking narcotic pain medications. If you do not move your bowels in the next 2 days, please take milk of magnesia over the counter. Please follow the post op diet and do not advance your diet until you are seen in the office in about 2 weeks. Please walk around your home every hour or two to prevent blood clots from forming in your legs. You do not need to wake from sleeping to walk. Please sleep in a bed or couch to prevent kinking at the hips and knees. Please take your incentive spirometer (your lung lead retail sales associate) home with you and use it for the next few days to prevent pneumonias. You may shower, no hot tubs, baths or swimming pools. Please call the office with any questions or concerns such as increasing abdominal pain, fever, chills, shortness of breath, chest pain, leg pain or swelling, or redness or drainage from your incisions. Please stay on stage 3 diet which includes sugar free clear liquids such as ice pops and jello and broth and crystal light. Avoid all carbonation. Please drink 3 protein shakes with at least 25-30 grams of protein daily or 3 of the Celebrate 4:1 shakes which can be purchased in our office. The Celebrate shakes have all of the bariatric vitamins you need if you consume these shakes. If you are drinking other protein shakes, you will need to purchase the Celebrate multivitamins and calcium that we provide in the office (they will provide all the vitamins you need). Please make sure you are consuming at least 40-60 ounces of water in addition to your 3 protein shakes daily. Do not hesitate to contact the office with any questions at . The patient's medical history has been reviewed and they are considered low risk for post op DVT and therefore DVT prophylaxis is not considered necessary. Travel after surgery was reviewed. The patient has not disclosed any travel plans during the first 30 days after surgery and they have been advised that within the first 30 days after surgery any bus, plane, train or car travel over 2 hours in duration is contraindicated due to the possibility of developing blood clots from immobility. Any travel, needs to include periods of ambulation of 10 minutes in duration every 2 hours.? The patient was instructed to discuss any plans for travel during this period with their bariatric surgeon. Discharge Date/Time: 09/05/21 11:00
[2021-09-04] MEDS: Famotidine/PF 20 MG/2 ML VIAL IVPUSH ×2 (12:20→21:11)
[2021-09-04 13:01] LABS: Hematocrit 38.7 % (37.0-47.0); Hemoglobin 12.5 g/dl (12.0-16.0)
[2021-09-04 13:17] LABS: Anion Gap 13 (12-20); Blood Urea Nitrogen 13 mg/dL (9-16); Carbon Dioxide 28 mmol/L (22-29); Chloride 101 mmol/L (96-108); Creatinine Clr Calc Pharmacy 101.4; Estimated Glomerular Filt Rate > 60; Glucose Random 131 mg/dL (60-115); Potassium 3.5 mmol/L (3.3-5.1); Sodium 138 mmol/L (135-145)
[2021-09-04] MEDS: Metoclopramide HCl 10 MG/2 ML VIAL IVPUSH (13:21)
[2021-09-04] MEDS: ondansetron HCL 4 MG/2 ML VIAL IVPUSH ×2 (15:20→21:11)
--- NOTE | 2021-09-04 16:14 | P.BOP_ITS ---
Brief Operative Note Date of Service: 09/04/21 Pre-op diagnosis: Morbid obesity with comorbidities (see below) Post-op diagnosis: same Procedure: INITIAL PATIENT BMI ON PRESENTATION AT OUR OFFICE: 55 kg/m2 LAST BMI BEFORE SURGERY: 48.4 kg/m2 COMORBIDITIES:GERD, hypertension, hypothyroidism, DJD, liver steatosis, liver fibrosis ?The patient presented to the Weight Management Program with significant obesity that was negatively impacting the patient's comorbidities as listed above.? The program is a phased program with a special focus on preoperative medical weight management to promote substantial weight loss and prepare the patients for the second phase of the program: bariatric surgery. The patient participated in an intensive weekly lifestyle ?intervention and exercise program during which the patient ?has lost between the initial office visit and the last preoperative visit 36.8lbs, or 11.87% of initial actual body weight. It was deemed appropriate for the patient to now have bariatric surgery. In light of the current Covid-19 pandemic and the well documented strong association of obesity and increased risk of worse outcomes if infected with Covid-19 (REFERENCES: https://pubmed.ncbi.nlm.nih.gov/46965391/ ,? https://pubmed.ncbi.nlm.nih.gov/65147053/ ), any delay in undergoing bariatric surgery may lead to the patient's worsening health condition and increased?risk of more severe Covid-19 disease if infected. In addition a recent?study from [facility] published in [facility] [facility] on 04/14/2021 ([email or web address]) found that, among patients with obesity, substantial weight loss achieved with surgery was associated with improved outcomes of COVID-19 infection. The findings suggest that obesity can be a modifiable risk factor for the severity of COVID-19 infection. In addition, the patient met the BMI-criteria for bariatric surgery based on the BMI on initial presentation. The patient should not be penalized for achieving such weight loss because ?it is not sustainable long-term without surgical intervention and it was achieved in preparation for bariatric surgery ?under my direction and based on my published research ([email or web address]).[email or web address] and? https://www.soard.org/article/V0472-5683(28)17091-X/pdf ) ?that a 10% preoper ative weight loss improves long-term weight loss after surgery and reduces perioperative complications.? Insurance carriers such as [facility] have endorsed my recommendations ?and have included in their policies criteria to include a 10% preoperative weight loss requirement. PROCEDURE: Esophago-gastroscopy, laparoscopic sleeve gastrectomy and laparoscopic gastropexy INDICATIONS: This is a 51 year-old female who was electively scheduled for laparoscopic, possibly open sleeve gastrectomy. The risks and complications of the procedure were discussed with the patient in advance, particularly the possi bility of ; pulmonary embolism; staple line leak; bleeding; GERD; cardiac, pulmonary, or renal complications; as well as long-term problems such as insufficient weight loss, vitamin deficiency, strictures, or ulcers. The patient understood all the risks, and was in agreement to proceed with surgery. DESCRIPTION OF PROCEDURE: After informed consent was obtained from the patient, the patient was given preoperative antibiotics, and was transferred to the operating room. After successful induction of general anesthesia, pneumatic compression devices were placed on both lower extremities. An upper endoscopy was performed next. The oropharynx and esophagus appeared to be within normal limits. There was no diaphragmatic hernia present consistent with the findings of the preoperative upper GI. The stomach was entered. Then after all fluid and air were suctioned and the stomach was fully decompressed, the scope was withdrawn and secured in the mid esophagus. The patient was then prepped and draped in the usual sterile manner, and abdominal access was established at the right upper quadrant with the Quin technique. A 12 mm blunt port was inserted, and the abdomen was insufflated with CO2 to a pressure of 15 mmHg. Under direct visualization, additional ports were placed, specifically two 5 mm Versi-step ports to the left upper quadrant, and a 5 mm Versi-Step port to the right upper quadrant. 1% lidocaine plain was used to infiltrate all port sites as well as all fascia defects. Using the EndoClose suture passer device, I placed a #1 Polysorb tie across the falciform ligament in order to retract it up against the abdominal wall and prevent injury of the ligament with our instruments during the procedure. Following that, the patient was placed in a steep reverse Trendelenburg position. An additional 5 mm port was placed to the right flank for the Mediflex retractor that was used to retract the left lobe of the liver. The gastro-esophageal fat pad was opened with the ultrasonic device (Thunderbeat, Olympus) and the anterior esophagus and hiatus were exposed. The angle of His was opened with the ultrasonic device the fundus of the stomach from any diaphragmatic and splenic attachments. I then opened the gastrocolic ligament between the transverse colon and the greater curvature of the stomach with the ultrasonic device to enter the lesser sac and facilitate the ligation of the short gastric vessels. I started at a mid-point along the greater curvature and using the Thunderbeat, all short gastric vessels were divided all the way to the angle of His until the left dash was completely dissected at its entirety. I then divided the gastro-colic ligament distally to a distance of about 3-4 cm proximal to the pylorus. The stomach was then divided transversely with one Endo ANCA-45 purple, and four ANCA-60 articulating orange loads using the AEON stapler and loads. Every effort was made that the gastric sleeve had a tubular shape and an even caliber throughout. Once the sleeve resection was completed, the staple line of the gastric sleeve was reinforced with Hemoclips. The resected stomach was retrieved without difficulty from the Quin port. A gastropexy was then performed in order to prevent postoperative GERD and partial gastric volvulus. Several interrupted 2.0 Surgidac sutures were placed between the sleeve's staple line and the previously divided greater omentum and gastro-colic ligament using the Endo-Stitch device. ?An upper endoscopy was performed. There was no narrowing at the GE junction. The scope was easily advanced all the way to the pylorus which was clearly visualized. There was no narrowing anywhere and the sleeve's caliber was even throughout. The sleeve's staple line was inspected and there was no evidence of ischemia, bleeding or dehiscence. At that point the gastroscope was withdrawn from the patient?s mouth while we were decompressing the bowel and the stomach from any remaining air. I looked into the lesser sac to see how the sleeve was situating and it was situating well. There was no bleeding from the staple line, spleen, or short gastric vessels. The Mediflex retractor was removed, and the undersurface of the liver was inspected and there was no bleeding. The patient was placed in supine position. I closed the fascial defect of the 12 mm port site with a figure of eight #1 Polysorb suture. Then 100 cc 0.25 % Marcaine plain with 10 mg of Dexamethasone were used to infiltrate the fascial closure as well as all skin incisions. A total of 7ml of Zynrelef was placed into the Quin wound. At this point, the abdomen was deflated, all ports were removed under direct vision, and no bleeding was noted from any of the port sites. The skin incisions were irrigated with saline and were closed with 4-0 absorbable monofilament sutures. Steri- Strips and OpSites were used to cover all incisions. The patient was extubated and was transferred in stable condition to the recovery room for further care. I was present and performed all goff parts of the procedure. Mr. Vital was the waiter/waitress first class. There were no residents to assist with this case. Jaison Whitley MD, PhD, FACS Surgeon: Oliver Whitley MD Anesthesia: GETA, local and other (TAP block and 7ml Zynrelef) Was an School Operations Manager used for this Procedure?: Yes School Operations Manager: Loy Vital Estimated blood loss (mL): 10 IV fluids (mL): 3,000 Urine output (mL): 0 (No sawyer to gravity) Pathology: other (Stomach) Condition: stable Disposition: PACU
--- NOTE | 2021-09-04 16:18 | P.PNGS_ITS ---
Subjective Subjective Date of Service: 09/05/21 Interval history: Patient has mild incisional pain, but was able to ambulate and use the incentive spirometer. She is tolerating phase 1 bariatric diet Physical Exam Vital Signs: Vital Signs: Last Vital Signs Temp 97.2 F 09/04/21 15:37 Pulse 50 09/04/21 15:37 Resp 16 09/04/21 15:37 BP 122/63 09/04/21 15:37 Pulse Ox 99 09/04/21 15:37 BMI result Body Mass Index 48.4 GI: Inspection: Yes normal to inspection, Yes incision (clean, dry and intact) and Yes obesity Extrem: Right lower extremity: normal to inspection (no calf tenderness) Left lower extremity: normal to inspection (no calf tenderness) Objective Data Active Medications Famotidine (Famotidine/Pf 20 Mg/2 Ml Vial) 20 mg IVPUSH BID [facility] Last Admin: 09/04/21 12:20 Dose: 20 mg Documented by: JELLY Fentanyl (Fentanyl Citrate/Pf 100 Mcg/2 Ml Vial) 25 mcg IVPUSH Q5M PRN; Protocol PRN Reason: Pain, Moderate (Pain Scale 4-6 Hydromorphone HCl (Hydromorphone Hcl 0.5 Mg/0.5 Ml Syringe) 0.25 mg IVPUSH Q5M PRN; Protocol PRN Reason: Pain, Severe (Pain Scale 7-10) Hydromorphone HCl (Hydromorphone Hcl 0.5 Mg/0.5 Ml Syringe) 0.25 mg IVPUSH Q4H PRN; Protocol PRN Reason: Pain, Moderate (Pain Scale 4-6 Lactated Ringer's (Lr) 1,000 mls @ 100 mls/hr IVCONT .Q10H [facility] Last Admin: 09/04/21 12:44 Dose: 100 mls/hr Documented by: DEISY Acetaminophen (Ofirmev) 1,000 mg in 100 mls @ 16.7 mls/hr IV .Q6H [facility] Last Admin: 09/04/21 15:20 Dose: 16.7 mls/hr Documented by: JOSUE Levothyroxine Sodium (Levothyroxine Sodium 100 Mcg Tablet) 100 mcg PO DAILY@0600 [facility] Lisinopril (Lisinopril 10 Mg Tablet) 10 mg PO DAILY LINDA; Protocol Metoclopramide HCl (Metoclopramide Hcl 10 Mg/2 Ml Vial) 10 mg IVPUSH Q6H PRN PRN Reason: Nausea Last Admin: 09/04/21 13:21 Dose: 10 mg Documented by: DEISY Ondansetron HCl (Ondansetron Hcl 4 Mg/2 Ml Vial) 4 mg IVPUSH Q8H LINDA Last Admin: 09/04/21 15:20 Dose: 4 mg Documented by: JOSUE Sodium Chloride (0.9 % Sodium Chloride Flush 3 Ml Syringe) 3 ml IVFLUSH QSHIFT [facility] Labs CBC & Chem 7: 09/05/21 04:08 09/05/21 04:08 Labs: Laboratory Results - last 24 hr 09/04/21 12:39 Anion Gap 13 Estim Creat Clear Calc 101.4 Estimated GFR > 60 Random Glucose 131 H Calcium 9.0 D Procedures Date of Service Date of Service: 09/05/21 Progress Note: A&P Assessment and plan (1) Morbid obesity: Status: Acute Assessment and Plan: s/p laparoscopic sleeve gastrectomy and gastropexy Doing well Check am labs. If OK, will discharge home (2) S/P laparoscopic sleeve gastrectomy: Status: Acute (3) Sleep apnea: Status: Acute (4) Knee pain: Status: Acute (5) Hypertension: Status: Acute (6) Hypothyroidism: Status: Acute (7) GERD (gastroesophageal reflux disease): Status: Acute (8) Steatosis, liver: Status: Acute (9) Liver fibrosis: Status: Acute Time Spent With Patient Time: Total time spent is greater than 50% in coordination of care (as documented) at patient's floor/unit and/or counseling patient: Quality Stroke Does the patient have a stroke diagnosis?: No VTE Prior VTE?: No VTE Risk Level:: Surgical - moderate VTE Device Contraindication: N/A - Device Ordered VTE Drug Contraindication: Treatment Not Indicated
[2021-09-05 03:02] VITALS: BP 130/61; PULSE 65; RESP 16; TEMP 36.4; O2SAT 96
[2021-09-05 05:00] LABS: MANUAL DIFF FLAG NO
[2021-09-05 05:10] LABS: Basophils Percent Auto 0.1 % (0-2); Hematocrit 37.3 % (37.0-47.0); Hemoglobin 12.1 g/dl (12.0-16.0); Imm Gran Abs Auto 0.04 X10*3/uL (0.00-0.03); Imm Gran Pct Auto 0.4 % (0.0-0.4); Lymphocytes Absolute Auto 0.7 X10*3/uL (1.2-4.9); Mean Corpuscular HGB Conc 32.4 g/dl (31.0-35.0); Mean Corpuscular Hemoglobin 27.8 pg (27.0-33.0); Mean Corpuscular Volume 85.7 fL (80.0-98.0); Mean Platelet Volume 10.5 fL (9.4-12.3); Monocytes Absolute Auto 0.4 X10*3/uL (0.1-1.2); Monocytes Percent Auto 4.4 % (2-11); Neutrophils Absolute Auto 8.4 x10*3/uL (2.0-8.3); Neutrophils Percent Auto 88.1 % (45-73); Platelet Count 230 X10*3/uL (160-400); Red Blood Count 4.35 X10*6/uL (4.20-5.50); Red Cell Distribution Width 12.9 % (11.0-16.0); White Blood Count 9.5 X10*3/uL (4.8-10.8)
[2021-09-05] MEDS: ondansetron HCL 4 MG/2 ML VIAL IVPUSH (05:35)
[2021-09-05] MEDS: Levothyroxine Sodium 100 MCG TABLET PO (05:35)
[2021-09-05 05:41] LABS: Anion Gap 13 (12-20); Blood Urea Nitrogen 11 mg/dL (9-16); Carbon Dioxide 28 mmol/L (22-29); Chloride 102 mmol/L (96-108); Creatinine Clr Calc Pharmacy 100.1; Estimated Glomerular Filt Rate > 60; Glucose Random 100 mg/dL (60-115); Potassium 4.2 mmol/L (3.3-5.1); Sodium 139 mmol/L (135-145)
[2021-09-05 07:32] VITALS: BP 126/70; PULSE 54; RESP 17; TEMP 36.6; O2SAT 96
--- NOTE | 2021-09-05 09:51 | MHC.CM.PN ---
nurse family service caseworker note electronic medical record revieviewed along with case discussed with bariatric pa, met with patient she is aware that she will be d/c today . she is active, independent in alladls and mobility withoput any devices she lives with her boyfriend and hs a lot of friends close by. 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 educated about the importance of having a hcp. confirmed pcp dr deepak mccoy, kristian vacinated x3 discharge plan home no services pcp dr mccoy -intructed to call for post hospitla dischagre follow up bariatric surgical follow up per discharge instructions transportation family
== END 2021-09-05 11:00 | disposition home or self-care (01) ==
LOC: HO.SSS 13:01 → HO.S3 13:03
PROVIDERS: Nurse Practitioner; Physician Assistant Surgical; PCP Internal Medicine; Visit Provider Surgery
PROC: (CPT 43845; principal; 2021-09-04 10:40)
DX: E66.01 Morbid (severe) obesity due to excess calories (principal); Z68.42 Body mass index [BMI] 45.0-49.9, adult; I10 Essential (primary) hypertension; E03.9 Hypothyroidism, unspecified; K21.9 Gastro-esophageal reflux disease without esophagitis; K76.0 Fatty (change of) liver, not elsewhere classified; K74.00 Hepatic fibrosis, unspecified; J45.909 Unspecified asthma, uncomplicated; M25.569 Pain in unspecified knee; M19.90 Unspecified osteoarthritis, unspecified site; G47.30 Sleep apnea, unspecified; Z79.899 Other long term (current) drug therapy; Z20.822 Contact with and (suspected) exposure to COVID-19
CPT/HCPCS: 43775; 43659; 36415; 80048; 80053; 80061; 83036; 83525; 84443; 85014; 85018; 85025; 85610; 85730; 86140; 86850; 86900; 86901; 87635; 88307; 88342; 99024; A4649; C9088; J0131; J0690; J1100; J1170; J2250; J2370; J2405; J2550; J2765; J3010

== ENCOUNTER → 2021-09-09 14:19 | Outpatient (BNVA) | payer OTHER, SELFPAY | PROVIDERS: PCP Internal Medicine; Referring Provider Internal Medicine; Visit Provider Surgery | DX: Z13.89 Encounter for screening for other disorder (principal) ==

== ENCOUNTER 2021-12-23 16:55 | Outpatient (REF) | payer OTHER, SELFPAY ==
[2021-12-23 18:17] LABS: Thyroid Stimulating Hormone 0.55 uIU/mL (0.32-4.0)
== END 2021-12-23 16:56 | disposition home or self-care (01) ==
LOC: HO.LAB 16:55
PROVIDERS: PCP Internal Medicine; Visit Provider Internal Medicine
DX: Z00.00 Encounter for general adult medical examination without abnormal findings (principal)
CPT/HCPCS: 36415; 84443

== ENCOUNTER 2021-12-27 07:59 | Outpatient (REF) | payer OTHER, SELFPAY ==
--- NOTE | ~2021-12-27 | MM_ITS ---
EXAMINATION: MM SCREENING DIGITAL BREAST TOMOSYNTHESIS, BILATERAL CLINICAL INFORMATION: Screening. Asymptomatic. The lifetime risk of breast cancer based on the Tyrer-Cuzick Model is 13%. COMPARISON: Mammography: 12/03/2020, 07/05/2019, 06/28/2018 TECHNIQUE: Digital breast tomosynthesis is performed in both the craniocaudal and mediolateral oblique views along with computer-aided detection (CAD). Synthesized 2D images are generated from the tomosynthesis. Additional left CC view is provided. FINDINGS: There are scattered areas of fibroglandular density (ACR BI-RADS breast composition Category b). There are no significant masses, abnormal calcifications, or other abnormalities. Parenchymal pattern is similar to prior studies. There is no developing density or architectural abnormality. The axilla and skin contours are unremarkable. No significant changes. MM/MM tomosynthesis screening BI IMPRESSION: No mammographic evidence of malignancy. ASSESSMENT: BI-RADS 1: Negative RECOMMENDATION: Routine annual mammography screening. This patient's information was entered into a reminder system with a target due date for their next mammogram.
== END 2021-12-27 08:00 | disposition home or self-care (01) ==
LOC: HO.MAMMO 07:59
PROVIDERS: PCP Internal Medicine; Visit Provider Internal Medicine
DX: Z12.31 Encounter for screening mammogram for malignant neoplasm of breast (principal)
CPT/HCPCS: 77063; 77067

== ENCOUNTER 2022-02-27 08:04 | Outpatient (REF) | payer OTHER, SELFPAY ==
[2022-02-27 08:19] LABS: MANUAL DIFF FLAG NO
[2022-02-27 09:10] LABS: Basophils Percent Auto 0.5 % (0-2); Eosinophils Absolute Auto 0.1 X10*3/uL (0.0-0.4); Eosinophils Percent Auto 1.7 % (0-4); Hematocrit 40.7 % (37.0-47.0); Hemoglobin 12.8 g/dl (12.0-16.0); Imm Gran Abs Auto 0.01 X10*3/uL (0.00-0.03); Imm Gran Pct Auto 0.2 % (0.0-0.4); Lymphocytes Absolute Auto 1.6 X10*3/uL (1.2-4.9); Lymphocytes Percent Auto 40.7 % (20-40); Mean Corpuscular HGB Conc 31.4 g/dl (31.0-35.0); Mean Corpuscular Volume 89.1 fL (80.0-98.0); Monocytes Absolute Auto 0.4 X10*3/uL (0.1-1.2); Monocytes Percent Auto 9.4 % (2-11); Neutrophils Absolute Auto 1.9 x10*3/uL (2.0-8.3); Neutrophils Percent Auto 47.5 % (45-73); Platelet Count 241 X10*3/uL (160-400); Red Blood Count 4.57 X10*6/uL (4.20-5.50); Red Cell Distribution Width 13.8 % (11.0-16.0)
[2022-02-27 09:25] LABS: Estimated Average Glucose 88 mg/dL; Hemoglobin A1c % 4.7 %
[2022-02-27 09:30] LABS: Alanine Aminotransferase 16 U/L (0-31); Albumin Level 4.2 g/dL (3.5-5.0); Alkaline Phosphatase 70 U/L (39-117); Anion Gap 14 (12-20); Aspartate Amino Transferase 21 U/L (5-31); Bilirubin Total 0.7 mg/dL (0.0-1.0); Blood Urea Nitrogen 22 mg/dL (9-16); C Reactive Protein 0.24 mg/dL (< or = 0.50); Calcium 9.9 mg/dL (8.4-10.2); Carbon Dioxide 28 mmol/L (22-29); Chloride 106 mmol/L (96-108); Cholesterol 159 mg/dL; Estimated Glomerular Filt Rate > 60; Glucose Random 82 mg/dL (60-115); HDL Cholesterol 41 mg/dL; Iron 121 mcg/dL (30-160); LDL Cholesterol Calculated 105 mg/dl; Percent Iron Saturation 45 % (15-50); Potassium 4.1 mmol/L (3.3-5.1); Sodium 144 mmol/L (135-145); Total Iron Binding Capacity 267 mcg/dL (228-428); Total Protein 6.9 g/dL (6.5-8.0); Triglycerides 67 mg/dL; Unsaturated Iron Binding 146 ug/dL
[2022-02-27 09:58] LABS: Ferritin 178 ng/mL (10-250); Insulin 7 uU/mL (2-29); TSH reflex Free T4 1.24 uIU/mL (0.32-4.0)
[2022-02-27 10:04] LABS: Folate 14.4 ng/mL (> or = 4.0); Vitamin B12 719 pg/mL (200-900)
[2022-02-27 12:42] LABS: Vitamin D 25-OH Total 49.3 ng/mL (>30)
[2022-03-02 17:27] LABS: Calcium (PTHI) 9.9 mg/dL (8.6-10.4); PTHI 36 pg/mL (16-77)
[2022-03-03 17:52] LABS: Zinc 82 mcg/dL (60-130)
[2022-03-05 06:31] LABS: Vitamin B1 24 nmol/L (8-30)
[2022-03-05 15:21] LABS: Vitamin A 37 mcg/dL (38-98)
== END 2022-02-27 08:05 | disposition home or self-care (01) ==
LOC: HO.LAB 08:04
PROVIDERS: Internal Medicine; Visit Provider Physician Assistant Surgical
DX: E03.9 Hypothyroidism, unspecified (principal); Z98.84 Bariatric surgery status
CPT/HCPCS: 36415; 80053; 80061; 82306; 82607; 82728; 82746; 83036; 83525; 83540; 83970; 84425; 84443; 84590; 84630; 85025; 86140

== ENCOUNTER → 2022-05-26 11:30 | Outpatient (BNVA) | payer OTHER, SELFPAY | PROVIDERS: PCP Internal Medicine; Visit Provider Physician Assistant Surgical | DX: Z13.89 Encounter for screening for other disorder (principal) ==

== ENCOUNTER 2022-09-12 07:04 | Outpatient (REF) | payer OTHER, SELFPAY ==
[2022-09-12 07:18] LABS: MANUAL DIFF FLAG NO
[2022-09-12 07:32] LABS: Basophils Percent Auto 0.7 % (0-2); Eosinophils Absolute Auto 0.1 X10*3/uL (0.0-0.4); Eosinophils Percent Auto 3.2 % (0-4); Hematocrit 40.6 % (37.0-47.0); Hemoglobin 13.1 g/dl (12.0-16.0); Imm Gran Abs Auto 0.01 X10*3/uL (0.00-0.03); Imm Gran Pct Auto 0.2 % (0.0-0.4); Lymphocytes Absolute Auto 1.8 X10*3/uL (1.2-4.9); Lymphocytes Percent Auto 44.7 % (20-40); Mean Corpuscular HGB Conc 32.3 g/dl (31.0-35.0); Mean Corpuscular Hemoglobin 28.8 pg (27.0-33.0); Mean Corpuscular Volume 89.2 fL (80.0-98.0); Mean Platelet Volume 9.1 fL (9.4-12.3); Monocytes Absolute Auto 0.4 X10*3/uL (0.1-1.2); Monocytes Percent Auto 9.7 % (2-11); Neutrophils Absolute Auto 1.7 x10*3/uL (2.0-8.3); Neutrophils Percent Auto 41.5 % (45-73); Platelet Count 237 X10*3/uL (160-400); Red Blood Count 4.55 X10*6/uL (4.20-5.50); Red Cell Distribution Width 13.4 % (11.0-16.0); White Blood Count 4.1 X10*3/uL (4.8-10.8)
[2022-09-12 07:40] LABS: Estimated Average Glucose 88 mg/dL; Hemoglobin A1c % 4.7 %
[2022-09-12 08:00] LABS: Alanine Aminotransferase 18 U/L (0-31); Albumin Level 4.1 g/dL (3.5-5.0); Alkaline Phosphatase 73 U/L (39-117); Anion Gap 10 (12-20); Aspartate Amino Transferase 23 U/L (5-31); Bilirubin Total 0.7 mg/dL (0.0-1.0); Blood Urea Nitrogen 18 mg/dL (9-16); C Reactive Protein 0.17 mg/dL (< or = 0.50); Calcium 9.8 mg/dL (8.4-10.2); Carbon Dioxide 30 mmol/L (22-29); Chloride 108 mmol/L (96-108); Cholesterol 165 mg/dL; Estimated Glomerular Filt Rate > 60; Glucose Random 93 mg/dL (60-115); HDL Cholesterol 60 mg/dL; Iron 120 mcg/dL (30-160); LDL Cholesterol Calculated 90 mg/dl; Percent Iron Saturation 41 % (15-50); Sodium 144 mmol/L (135-145); Total Iron Binding Capacity 294 mcg/dL (228-428); Total Protein 6.9 g/dL (6.5-8.0); Triglycerides 77 mg/dL; Unsaturated Iron Binding 174 ug/dL
[2022-09-12 08:33] LABS: Ferritin 112 ng/mL (10-250); Folate > 20.0 ng/mL (> or = 4.0); TSH reflex Free T4 1.48 uIU/mL (0.32-4.0); Vitamin B12 1184 pg/mL (200-900); Vitamin D 25-OH Total 40.5 ng/mL (>30)
[2022-09-12 09:20] LABS: Insulin 7 uU/mL (2-29)
[2022-09-16 19:59] LABS: Calcium (PTHI) 9.8 mg/dL (8.6-10.4); PTHI 35 pg/mL (16-77)
[2022-09-17 18:38] LABS: Zinc 77 mcg/dL (60-130)
[2022-09-18 13:22] LABS: Vitamin B1 32 nmol/L (8-30)
[2022-09-18 14:18] LABS: Vitamin A 55 mcg/dL (38-98)
== END 2022-09-12 07:05 | disposition home or self-care (01) ==
LOC: HO.LAB 07:04
PROVIDERS: PCP Internal Medicine; Visit Provider Physician Assistant Surgical
DX: K91.2 Postsurgical malabsorption, not elsewhere classified (principal); Z98.84 Bariatric surgery status
CPT/HCPCS: 36415; 80053; 80061; 82306; 82607; 82728; 82746; 83036; 83525; 83540; 83970; 84425; 84443; 84590; 84630; 85025; 86140

== ENCOUNTER → 2022-09-15 16:22 | Outpatient (BNVA) | payer OTHER, SELFPAY | PROVIDERS: PCP Internal Medicine; Visit Provider Physician Assistant Surgical ==

== ENCOUNTER 2022-09-26 07:42 | Outpatient (REF) | payer OTHER, SELFPAY ==
[2022-09-26 09:08] LABS: Thyroid Stimulating Hormone 0.79 uIU/mL (0.32-4.0)
== END 2022-09-26 07:43 | disposition home or self-care (01) ==
LOC: HO.LAB 07:42
PROVIDERS: PCP Internal Medicine; Visit Provider Internal Medicine
DX: E03.9 Hypothyroidism, unspecified (principal)
CPT/HCPCS: 36415; 84443

== ENCOUNTER 2022-11-05 10:19 | Outpatient (AMB) | payer OTHER, SELFPAY ==
--- NOTE | 2022-11-05 10:30 | A.OFFPC_ITS ---
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 Required: No Accompanied by: Self / Same As Patient Allergies No Known Allergies Allergy (Verified 11/05/22 10:34) Medication List - Last Reconciled 11/05/22 by Doron Garcia MD cetirizine (All Day Allergy (cetirizine)) 10 mg PO DAILY PRN levothyroxine 100 mcg PO DAILY vitamin A palmitate 10,000 units PO DAILY Tobacco use date assessed: 11/05/22 Dental Screening Dental Screen Date: 11/05/22 Did you have a dental visit in the last 12 months?: No Did you have a dental problem in the last 6 months where you did not have access to dental care?: No Was dental information given to patient?: Patient has dentist HPI Left Ear Pressure/Drainage HPI Details left earache for a week PFS Medical History (Updated 01/29/22 @ 10:25 by HANK Lucas) Allergic rhinitis Allergy-induced asthma COVID-19 vaccine series completed GERD (gastroesophageal reflux disease) HTN (hypertension) Hypothyroidism Morbid obesity Surgical History H/O colonoscopy History of tonsillectomy Hx of myringotomy S/P laparoscopic sleeve gastrectomy Family History Father Hypertension Cardiac disease Mother Hypertension Cardiac disease Smoker Cancer Maternal Aunt Breast cancer Brother Asthma Substance use disorder Social History (Updated 09/15/22 @ 16:30 by Aurea Bruce CMA) Housing: House Are you a primary medical care manager to a significant other at home: No Do you presently have visiting nurse or other home services: No Alcohol intake: current Alcohol intake frequency: holidays/special occasions only Patient Tobacco Use Status: Never used Tobacco e-Cigarette/Vaping Use: Never Used Second Hand Smoke Exposure: No service: No Current occupational status: employed Cognitive needs: No Hearing needs: No Vision needs: Yes (glasses) Questionnaire PHQ-9 Over the last 2 weeks, how often have you been bothered by any of the following problems? 1. Little interest or pleasure in doing things: not at all 2. Feeling down, depressed, or hopeless: not at all 3. Trouble falling or staying asleep, or sleeping too much: not at all 4. Feeling tired or having little energy: not at all 5. Poor appetite or overeating: not at all 6. Feeling bad about yourself - or that you are a failure or have let yourself or your family down: not at all 7. Trouble concentrating on things, such as reading the newspaper or watching television: not at all 8. Moving or speaking so slowly that other people could have noticed. Or the opposite - being so fidgety or restless that you have been moving around a lot more than usual: not at all 9. Thoughts that you would be better off or of hurting yourself in some way: not at all Total score: 0 Depression Screening Interpretation: Negative Source: Developed by Drs. Marco Garcia, Shannon Guajardo, Shayne Daigle and colleagues, with an educational dallas from [employer]. Thrive Questionnaire Date Thrive assessed: 11/05/22 I am a: Patient What is your living situation today?: I have a steady place to live Within the past 12 months, did the food you bought not last and you didn't have the money to get more?: Never true Within the past 12 months, did you worry whether your food would run out before you got money to buy more?: Never true Do you have trouble paying for medicines?: No Do you have trouble getting transportation to medical appointments?: No Do you have trouble paying your heating and electricity bill?: No Do you have trouble taking care of your child, family member or friend?: No Do you have trouble with day-to-day activities such as bathing, preparing meals, shopping, managing finances, etc.?: No Are you currently unemployed and looking for a job?: No Are you interested in more education?: No Please select the resources that you would like help with: None Currently or been in a relationship where the following occur: no concerns reported AUDIT C Alcohol Use Questionnaire (AUDIT-C) 1. How often do you have a drink containing alcohol?: Monthly or less 2. How many drinks containing alcohol do you have on a typical day when you are drinking?: 1 or 2 3. How often do you have six or more drinks on one occasion?: Never Total Score: 1 Score Reviewed/Action Taken: Yes KARLA-7 AMB Questionnaire KARLA-7 Date KARLA - 7 assessed: 11/05/22 Feeling nervous, anxious, or on edge: 0 = Not at all Not being able to stop or control worryin = Not at all Worrying too much about different things: 0 = Not at all Trouble relaxin = Not at all Being so restless that it is hard to sit still: 0 = Not at all Becoming easily annoyed or irritable: 0 = Not at all Feeling afraid as if something awful might happen: 0 = Not at all Total KARLA-7 score (0-4 normal; 5-9 mild; 10-14 moderate; 15-21 severe): 0 Source: Developed by Drs. Marco Garcia, Shannon Guajardo, Shayne Daigle and colleagues, with an educational dallas from [employer]. Review of Systems Const Denies chills, Denies headache(s) and Denies weight loss ENT Denies headache(s) Card Denies chest pain, Denies syncope, Denies irregular heart rhythm and Denies dyspnea Resp Denies chest congestion, Denies cough and Denies dyspnea GI Denies abdominal pain, Denies change in stool character, Denies nausea and Denies vomiting Musc Denies deformity and Denies joint swelling Neuro Denies syncope and Denies headache(s) Physical exam (Primary Care) Vital Signs: Last Vital Signs Pulse 92 11/05/22 10:31 BP 112/72 11/05/22 10:31 Pulse Ox 98 11/05/22 10:31 Oxygen Delivery Method Room Air 11/05/22 10:31 BMI result Body Mass Index 40.1 Tobacco/Smoking Status: Tobacco use Status Tobacco use date assessed 11/05/22 11/05/22 10:35 Patient Tobacco Use Status Never used Tobacco 11/05/22 10:35 e-Cigarette/Vaping Use Never Used 11/05/22 10:35 PHQ-9: PHQ-9 Score PHQ-9: Total score 0 11/05/22 10:35 Depression Screening Interpretation: Negative Thrive Assessment: Date of Thrive Assessment Date Thrive assessed 11/05/22 11/05/22 10:35 Currently or been in a relationship where the following occur: no concerns reported Const General: cooperative HENMT Other: left OM Chest Chest palpation & inspection: normal inspection of the chest Resp Effort & Inspection: normal respiratory effort Assessment and Plan Assessment & Plan (1) Otitis media: Code(s): H66.90 - Otitis media, unspecified, unspecified ear Plan: rx sent Medications: New azithromycin take 500 mg today (day 1), then 250 mg for 4 days (days 2-5) PO 6 tabs 0RF Coding Level of Care Code Est Pt Level 3 (64265) Diagnoses Otitis media H66.90 Additional Codes PHQ-9 - 29010 - PHQ-9 Billing: Y ([id number])
[2022-11-05 10:31] VITALS: BP 112/72; PULSE 92; O2SAT 98; BMI 40.1
== END 2022-11-05 10:41 | disposition home or self-care (01) ==
PROVIDERS: PCP Internal Medicine; Visit Provider Internal Medicine
DX: H66.90 Otitis media, unspecified, unspecified ear (principal)
CPT/HCPCS: 99213

== ENCOUNTER 2022-12-17 11:00 | Outpatient (AMB) | payer OTHER, SELFPAY ==
--- NOTE | 2022-12-17 10:18 | MHC.OFFVISWM ---
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 1 year labs done in August. TBWL is Wants to stop 4:1 shakes and start mvi. Her goal is to get to 200 lbs. No exercise lately- wants to restart gym. Gym 2 -3 d/wk - bike for 45 - 60 minutes - ? calories, weights - abds 4 set of 20, 25 lbs, UE 20 lbs same amt sets, leg press 40 lbs same reps. Meal plan: 8am - 4pm - 4:1 shakes UAM, adds 1/4 c frozen berries to each shake lunch time - raw peppers, slow fat string cheese dinner --3 oz chicken and 3 oz veg or salad. [facility] Medical History (Updated 12/17/22 @ 10:19 by Irma Bolanos PA-C) Allergic rhinitis Allergy-induced asthma COVID-19 vaccine series completed GERD (gastroesophageal reflux disease) HTN (hypertension) Hypothyroidism Morbid obesity Morbid obesity Surgical History H/O colonoscopy History of tonsillectomy Hx of myringotomy S/P laparoscopic sleeve gastrectomy Family History Father Hypertension Cardiac disease Mother Hypertension Cardiac disease Smoker Cancer Maternal Aunt Breast cancer Brother Asthma Substance use disorder Social History (Updated 09/15/22 @ 16:30 by Aurea Bruce CMA) Housing: House Are you a primary critical care registered nurse to a significant other at home: No Do you presently have visiting nurse or other home services: No Alcohol intake: current Alcohol intake frequency: holidays/special occasions only Patient Tobacco Use Status: Never used Tobacco e-Cigarette/Vaping Use: Never Used Second Hand Smoke Exposure: No service: No Current occupational status: employed Cognitive needs: No Hearing needs: No Vision needs: Yes (glasses) Assessment & Plan Assessment & Plan (1) Obesity: Code(s): E66.9 - Obesity, unspecified Plan: 15 months post op with about 95 lbs lost so far but no weight loss in 4 months. Wants to stop 4:1 shakes. We discussed goal of 165 lbs so that she is out of obese category. 90 - 100 grams of protein per day 8am - REbuild with 8 -10 oz of skim or Premeir shakes multiple flavors- 45 minutes 11:30 - 3oz protien with 3 oz raw vegetables . Or hb eggs 3pm - bar or yogurt or 1/4 c berries 6pm- 3 oz/ 3 oz Exercise- minimum 4d/week - treadmill - speed 3.0 , incline -1 - 7, 350 calories. 3d/week - LE - inner touter thighs , leg press , abs, UE. [employer] - 15 minute abds OR [employer] - 30 minutes. Next appt in 3 months but will text me next week and weekly. Patient is still obese and is not considered stable at this time. I spent 30 minutes in total speaking with the patient via video conference counseling , reviewing records and charting in patients chart. . (2) S/P laparoscopic sleeve gastrectomy: Comment: 09/04/21 Code(s): Z98.84 - Bariatric surgery status Coding Level of Care Code Tele Est Pt Level 4 (86453) Diagnoses Obesity E66.9 S/P laparoscopic sleeve gastrectomy Z98.84
[2022-12-17 11:08] VITALS: BMI 38.3
== END 2022-12-17 11:42 | disposition home or self-care (01) ==
LOC: HO.HBS 11:14
PROVIDERS: PCP Internal Medicine; Visit Provider Physician Assistant
DX: E66.9 Obesity, unspecified (principal); Z68.38 Body mass index [BMI] 38.0-38.9, adult; Z90.3 Acquired absence of stomach [part of]; Z98.84 Bariatric surgery status
CPT/HCPCS: 99214

== ENCOUNTER → 2022-12-17 11:00 | Outpatient (BNVA) | payer OTHER, SELFPAY | PROVIDERS: PCP Internal Medicine; Visit Provider Physician Assistant ==

== ENCOUNTER 2023-01-04 08:15 | Outpatient (REF) | payer OTHER, SELFPAY ==
--- NOTE | ~2023-01-04 | MM_ITS ---
EXAMINATION: MM SCREENING DIGITAL BREAST TOMOSYNTHESIS, BILATERAL CLINICAL INFORMATION: Screening. Asymptomatic. COMPARISON: Mammography: This study is compared with prior exams dating back to 2020. TECHNIQUE: Digital breast tomosynthesis is performed in both the craniocaudal and mediolateral oblique views along with computer-aided detection (CAD). Synthesized 2D images are generated from the tomosynthesis. FINDINGS: The breasts are almost entirely fatty (ACR BI-RADS breast composition Category a). There are no significant masses, abnormal calcifications, or other abnormalities. MM/MM tomosynthesis screening BI IMPRESSION: No mammographic evidence of malignancy. ASSESSMENT: BI-RADS BI-RADS 1 - Negative RECOMMENDATION: Routine annual mammography screening. 1 year F/U This examination should not preclude the clinical evaluation of a suspicious palpable abnormality. This patient's information was entered into a reminder system with a target due date for their next mammogram.
== END 2023-01-04 08:16 | disposition home or self-care (01) ==
LOC: HO.MAMMO 08:15
PROVIDERS: PCP Internal Medicine; Visit Provider Internal Medicine
DX: Z12.31 Encounter for screening mammogram for malignant neoplasm of breast (principal)
CPT/HCPCS: 77063; 77067

== ENCOUNTER → 2023-01-04 08:30 | Outpatient (BNV) | payer OTHER, SELFPAY | PROVIDERS: PCP Internal Medicine; Visit Provider Radiology Diagnostic Radiology | DX: Z12.31 Encounter for screening mammogram for malignant neoplasm of breast (principal) | CPT/HCPCS: 77063; 77067 ==

== ENCOUNTER 2023-03-27 08:23 | Outpatient (REF) | payer OTHER, SELFPAY ==
[2023-03-27 09:37] LABS: Thyroid Stimulating Hormone 1.43 uIU/mL (0.32-4.0)
== END 2023-03-27 08:24 | disposition home or self-care (01) ==
LOC: HO.LAB 08:23
PROVIDERS: PCP Internal Medicine; Visit Provider Internal Medicine
DX: E03.9 Hypothyroidism, unspecified (principal)
CPT/HCPCS: 36415; 84443

== ENCOUNTER 2023-04-01 09:02 | Outpatient (AMB) | payer OTHER, SELFPAY ==
[2023-04-01 09:06] VITALS: BP 112/72; PULSE 60; O2SAT 99; BMI 38.3
--- NOTE | 2023-04-01 09:06 | A.OFFPC_ITS ---
Vital Signs 04/01/23 09:06 Height 5 ft 3 in Weight 216 lb BMI 38.3 BP 112/72 Blood Pressure Location Lt brachial Position Sitting Pulse 60 Pulse Source Pulse Oximeter Pulse Oximetry (%) 99 Oxygen Delivery Method Room Air Intake Visit Reasons: 6 month f/u Integrated Circuit Fabricator Required: No Operators School Manager: Not Required per policy Accompanied by: Self / Same As Patient Allergies No Known Allergies Allergy (Verified 04/01/23 09:06) Medication List - Last Reconciled 04/01/23 by Doron Garcia MD [id number]-ceps-copper-debbie 325 mg-12.5 mcg -2.75 mg 1 tab PO BID cetirizine (All Day Allergy (cetirizine)) 10 mg PO DAILY PRN [citrical w D 325/12.5 orally; ] inulin (Fiber Gummies) 4 grams PO DAILY levothyroxine 100 mcg PO DAILY vitamin A 1 cap PO DAILY Tobacco use date assessed: 11/05/22 Dental Screening Dental Screen Date: 04/01/23 Did you have a dental visit in the last 12 months?: No Did you have a dental problem in the last 6 months where you did not have access to dental care?: No Was dental information given to patient?: Patient has dentist HPI 6 month f/u HPI Details hypothyroidism on rx; doing well; labs fine PFSH Medical History Allergy-induced asthma COVID-19 vaccine series completed GERD (gastroesophageal reflux disease) Morbid obesity Hypothyroidism Morbid obesity Allergic rhinitis HTN (hypertension) Surgical History S/P laparoscopic sleeve gastrectomy H/O colonoscopy Hx of myringotomy History of tonsillectomy Family History Father Hypertension Cardiac disease Mother Hypertension Cardiac disease Smoker Cancer Maternal Aunt Breast cancer Brother Asthma Substance use disorder Social History Housing: House Are you a primary professional healthcare representative to a significant other at home: No Do you presently have visiting nurse or other home services: No Alcohol intake: current Alcohol intake frequency: holidays/special occasions only Patient Tobacco Use Status: Never used Tobacco e-Cigarette/Vaping Use: Never Used Second Hand Smoke Exposure: No service: No Current occupational status: employed Cognitive needs: No Hearing needs: No Vision needs: Yes (glasses) Questionnaire Thrive Questionnaire Date Thrive assessed: 11/05/22 KARLA-7 AMB Questionnaire KARLA-7 Date KARLA - 7 assessed: 11/05/22 Source: Developed by Drs. Marco Garcia, Shannon Guajardo, Shayne Daigle and colleagues, with an educational dallas from [employer]. Review of Systems Const Denies chills, Denies headache(s) and Denies weight loss ENT Denies headache(s) Card Denies chest pain, Denies syncope, Denies irregular heart rhythm and Denies dyspnea Resp Denies chest congestion, Denies cough and Denies dyspnea GI Denies abdominal pain, Denies change in stool character, Denies nausea and Denies vomiting Musc Denies deformity and Denies joint swelling Neuro Denies syncope and Denies headache(s) Physical exam (Primary Care) Vital Signs: Last Vital Signs Pulse 60 04/01/23 09:06 BP 112/72 04/01/23 09:06 Pulse Ox 99 04/01/23 09:06 Oxygen Delivery Method Room Air 04/01/23 09:06 BMI result Body Mass Index 38.3 Tobacco/Smoking Status: Tobacco use Status Tobacco use date assessed 11/05/22 04/01/23 09:07 Patient Tobacco Use Status Never used Tobacco 04/01/23 09:07 e-Cigarette/Vaping Use Never Used 04/01/23 09:07 Thrive Assessment: Date of Thrive Assessment Date Thrive assessed 11/05/22 04/01/23 09:07 Const General: cooperative, comfortable, no acute distress and alert Neck Neck: Yes no lymphadenopathy Thyroid: Thyroid normal Resp Effort & Inspection: normal respiratory effort Auscultation: clear to auscultation bilaterally Percussion: percussion normal Cardio Jugular venous distension: no JVD Palpation: normal PMI Rate: regular rate Rhythm: regular rhythm Heart sounds: S1 normal heart sound present and S2 normal heart sound present GI Inspection: Yes normal to inspection Palpation (GI): No hepatosplenomegaly present Skin General skin exam: no rashes or lesions noted Extrem General: Yes no clubbing, cyanosis or edema Assessment and Plan Assessment & Plan (1) Hypothyroidism: Code(s): E03.9 - Hypothyroidism, unspecified Plan: stable; same rx Orders: Orders Complete Blood Count Auto Diff Today D64.9 - Anemia, unspecified Lipid Panel Today E78.5 - Hyperlipidemia, unspecified Thyroid Stimulating Hormone Today E03.9 - Hypothyroidism, unspecified Comprehensive [place]. Panel Fast Today N28.9 - Disorder of kidney and ureter, unspecified Medications: New azithromycin take 500 mg today (day 1), then 250 mg for 4 days (days 2-5) PO 6 tabs 0RF Coding Level of Care Code Est Pt Level 3 (52179) Diagnoses Hypothyroidism E03.9
== END 2023-04-01 09:37 | disposition home or self-care (01) ==
PROVIDERS: PCP Internal Medicine; Visit Provider Internal Medicine
DX: E03.9 Hypothyroidism, unspecified (principal)
CPT/HCPCS: 99213

== ENCOUNTER 2023-04-01 16:30 | Outpatient (AMB) | payer OTHER, SELFPAY ==
--- NOTE | 2023-04-01 14:49 | MHC.OFFVISWM ---
Intake VS Expanded 04/01/23 16:27 Height 5 ft 3 in Weight 214 lb 9 oz BMI 38.0 Intake Visit Reasons: VIDEO PO LSG 09/04/21 Allergies No Known Allergies Allergy (Verified 04/01/23 09:06) Medication List - Last Reconciled 04/01/23 by Irma Bolanos PA-C azithromycin take 500 mg today (day 1), then 250 mg for 4 days (days 2-5) PO [id number]-A1-fecq-copper-debbie 325 mg-12.5 mcg -2.75 mg 1 tab PO BID cetirizine (All Day Allergy (cetirizine)) 10 mg PO DAILY PRN [citrical w D 325/12.5 orally; ] inulin (Fiber Gummies) 4 grams PO DAILY levothyroxine 100 mcg PO DAILY vitamin A 1 cap PO DAILY HPI HPI Comments History of Present Illness Details 53 yo woman is now 1.5 years s/p LSG. 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 TSH checked today no med changes. Stopped exercising and knows she needs to restart. 8am- 1 egg lo omar wrap tortilla with shake 11:30 am - raw peppers/cucumber, sometimes has a cottage cheese 2pm some days has some yogurt with frozen fruit 5-6 pm - 2-3 oz protein and 2-3 oz salad sugar free popsicles [facility] Medical History Allergy-induced asthma COVID-19 vaccine series completed GERD (gastroesophageal reflux disease) Morbid obesity Hypothyroidism Morbid obesity Allergic rhinitis HTN (hypertension) Surgical History S/P laparoscopic sleeve gastrectomy H/O colonoscopy Hx of myringotomy History of tonsillectomy Family History Father Hypertension Cardiac disease Mother Hypertension Cardiac disease Smoker Cancer Maternal Aunt Breast cancer Brother Asthma Substance use disorder Social History Housing: House Are you a primary health care marketing specialist to a significant other at home: No Do you presently have visiting nurse or other home services: No Alcohol intake: current Alcohol intake frequency: holidays/special occasions only Patient Tobacco Use Status: Never used Tobacco e-Cigarette/Vaping Use: Never Used Second Hand Smoke Exposure: No service: No Current occupational status: employed Cognitive needs: No Hearing needs: No Vision needs: Yes (glasses) Assessment & Plan Assessment & Plan (1) Obesity: Code(s): E66.9 - Obesity, unspecified Plan: Again no weight loss, she is having a hard time getting motivated for exercise and has slipped in her meal plan and not getting enough protein. 8am - 20 - 25 gram shake - water or UAM 11:30 am - shake 3pm - bar or yogurt 04/22 c frozen fruit or cottage chees 04/22 raw vegetables 6pm - 3 oz protien and 3 oz veg - take MVI here Goal of 1.5 - 2 lbs per week Exercise - 2,000 omar/week - gym 4 d/week - will work on timing on 2 week and then saturdays and sundays Agrees to have appt with Courtney for more help - 1 month me in 6 months, will continue to send me weights weekly Patient is still morbidly obese and is not considered stable at this time. I spent 30 minutes in total speaking with the patient via video conference counseling , reviewing records and charting in patients chart. . (2) S/P laparoscopic sleeve gastrectomy: Comment: 09/04/21 Code(s): Z98.84 - Bariatric surgery status Plan: post op labs ordered Orders: Orders IRON PROFILE Today E66.9 - Obesity, unspecified, K74.00 - Hepatic fibrosis, unspecified, K76.0 - Fatty (change of) liver, not elsewhere classified, Z98.84 - Bariatric surgery status Comprehensive Met. Panel Today E66.9 - Obesity, unspecified, K74.00 - Hepatic fibrosis, unspecified, K76.0 - Fatty (change of) liver, not elsewhere classified, Z98.84 - Bariatric surgery status Zinc Today E66.9 - Obesity, unspecified, K74.00 - Hepatic fibrosis, unspecified, K76.0 - Fatty (change of) liver, not elsewhere classified, Z98.84 - Bariatric surgery status Ferritin Today E66.9 - Obesity, unspecified, K74.00 - Hepatic fibrosis, unspecified, K76.0 - Fatty (change of) liver, not elsewhere classified, Z98.84 - Bariatric surgery status Insulin Today E66.9 - Obesity, unspecified, K74.00 - Hepatic fibrosis, unspecified, K76.0 - Fatty (change of) liver, not elsewhere classified, Z98.84 - Bariatric surgery status Hemoglobin A1c Today E66.9 - Obesity, unspecified, K74.00 - Hepatic fibrosis, unspecified, K76.0 - Fatty (change of) liver, not elsewhere classified, Z98.84 - Bariatric surgery status Vitamin B12 and Folate Today E66.9 - Obesity, unspecified, K74.00 - Hepatic fibrosis, unspecified, K76.0 - Fatty (change of) liver, not elsewhere classified, Z98.84 - Bariatric surgery status C Reactive Protein Today E66.9 - Obesity, unspecified, K74.00 - Hepatic fibrosis, unspecified, K76.0 - Fatty (change of) liver, not elsewhere classified, Z98.84 - Bariatric surgery status Vitamin B1 Today E66.9 - Obesity, unspecified, K74.00 - Hepatic fibrosis, unspecified, K76.0 - Fatty (change of) liver, not elsewhere classified, Z98.84 - Bariatric surgery status Vitamin A Today E66.9 - Obesity, unspecified, K74.00 - Hepatic fibrosis, unspecified, K76.0 - Fatty (change of) liver, not elsewhere classified, Z98.84 - Bariatric surgery status Vitamin D 25-OH Total Today E66.9 - Obesity, unspecified, K74.00 - Hepatic fibrosis, unspecified, K76.0 - Fatty (change of) liver, not elsewhere classified, Z98.84 - Bariatric surgery status Telehealth Telehealth Location of provider rendering services: practice address Location of patient: address on file Patient Identification confirmed using: Name, : Yes Telehealth method: video Patient verbally consented to treatment: Yes Patient verbally consented to billing insurance company: Yes Patient informed of any privacy concerns related to visit: Yes Coding Level of Care Code Tele Est Pt Level 4 (18414) Diagnoses Obesity E66.9 S/P laparoscopic sleeve gastrectomy Z.84
[2023-04-01 16:27] VITALS: BMI 38.0
== END 2023-04-01 16:57 | disposition home or self-care (01) ==
LOC: HO.HBS 16:31
PROVIDERS: PCP Internal Medicine; Visit Provider Physician Assistant
DX: E66.9 Obesity, unspecified (principal); Z98.84 Bariatric surgery status
CPT/HCPCS: 99214

== ENCOUNTER → 2023-04-01 16:30 | Outpatient (BNVA) | payer OTHER, SELFPAY | PROVIDERS: PCP Internal Medicine; Visit Provider Physician Assistant ==

== ENCOUNTER 2023-05-27 16:04 | Outpatient (AMB) | payer OTHER, SELFPAY ==
--- NOTE | 2023-05-27 15:58 | A.OFFVIS_ITS ---
Intake Intake Visit Reasons: VIDEO PO LSG 09/04/21 Allergies No Known Allergies Allergy (Verified 04/01/23 09:06) HPI Nutrition Presentation Details LSG DOS 09/04/21 Reason for consult elevated BMI Diet Assmnt Details food sandra, I think I am doing OK - has no questions or concerns about nutrition. 2 shakes (justin or Celebrate rebuild) dinner meal 1 snack: 1 hardboiled egg, protein bar, quest chips, faroese yogurt, cottage cheese Vitamins: celebrate vitamins and taking vitamins A still Exercise: none but bought a treadmill Dietary counseling reduction Diagnosis Nutrition problem #1 overweight/obesity As related to (etiology) #1 excess energy intake and physical inactivity As evidenced by (sign/symptom) #1 high BMI Monitoring/Goals Nutrition problem monitoring total energy intake, level of knowledge/skill, total PRO intake, total CHO intake and weight Outcome progress progressing Learning/Education Readiness to learn good Stages of change action Educational materials provided Yes Most Recent Diabetes Results: No Data to Display [facility] Medical History Allergy-induced asthma COVID-19 vaccine series completed GERD (gastroesophageal reflux disease) Morbid obesity Hypothyroidism Morbid obesity Allergic rhinitis HTN (hypertension) Surgical History S/P laparoscopic sleeve gastrectomy H/O colonoscopy Hx of myringotomy History of tonsillectomy Family History Father Hypertension Cardiac disease Mother Hypertension Cardiac disease Smoker Cancer Maternal Aunt Breast cancer Brother Asthma Substance use disorder Social History Housing: House Are you a primary career technical education instructor to a significant other at home: No Do you presently have visiting nurse or other home services: No Alcohol intake: current Alcohol intake frequency: holidays/special occasions only Patient Tobacco Use Status: Never used Tobacco e-Cigarette/Vaping Use: Never Used Second Hand Smoke Exposure: No service: No Current occupational status: employed Cognitive needs: No Hearing needs: No Vision needs: Yes (glasses) Assessment & Plan Assessment & Plan (1) Morbid (severe) obesity due to excess calories: Code(s): E66.01 - Morbid (severe) obesity due to excess calories Plan pt encouraged to communicate as needed with office , reminded of appt in August with PA. No nutrition changes as pt very content with shakes, meals and snacks. Telehealth Telehealth Location of provider rendering services: other (home address, [facility] ) Location of patient: address on file Patient Identification confirmed using: Name, : Yes Telehealth method: voice only Patient verbally consented to treatment: Yes Patient verbally consented to billing insurance company: Yes Patient informed of any privacy concerns related to visit: Yes Minutes spent on Phone/Video with Pt.: 20 Coding Level of Care Code Nutr Indiv Subseq (06954) Diagnoses Morbid (severe) obesity due to excess calories E66.01 Time Spent (min) 20
== END 2023-05-27 16:20 | disposition home or self-care (01) ==
LOC: HO.HBS 16:04
PROVIDERS: PCP Internal Medicine; Visit Provider Dietitian, Registered
DX: E66.01 Morbid (severe) obesity due to excess calories (principal)

== ENCOUNTER → 2023-05-27 16:04 | Outpatient (BNVA) | payer OTHER, SELFPAY | PROVIDERS: PCP Internal Medicine; Visit Provider Dietitian, Registered | DX: E66.01 Morbid (severe) obesity due to excess calories (principal); Z98.84 Bariatric surgery status; Z71.3 Dietary counseling and surveillance | CPT/HCPCS: 97803 ==

== ENCOUNTER 2023-05-29 06:57 | Outpatient (REF) | payer OTHER, SELFPAY ==
[2023-05-29 07:16] LABS: MANUAL DIFF FLAG NO
[2023-05-29 07:31] LABS: Basophils Percent Auto 1.1 % (0-2); Eosinophils Absolute Auto 0.2 X10*3/uL (0.0-0.4); Eosinophils Percent Auto 5.1 % (0-4); Hematocrit 39.5 % (37.0-47.0); Hemoglobin 12.8 g/dl (12.0-16.0); Imm Gran Abs Auto 0.01 X10*3/uL (0.00-0.03); Imm Gran Pct Auto 0.3 % (0.0-0.4); Lymphocytes Absolute Auto 1.8 X10*3/uL (1.2-4.9); Lymphocytes Percent Auto 47.6 % (20-40); Mean Corpuscular HGB Conc 32.4 g/dl (31.0-35.0); Mean Corpuscular Hemoglobin 28.2 pg (27.0-33.0); Mean Platelet Volume 9.1 fL (9.4-12.3); Monocytes Absolute Auto 0.3 X10*3/uL (0.1-1.2); Monocytes Percent Auto 9.1 % (2-11); Neutrophils Absolute Auto 1.4 x10*3/uL (2.0-8.3); Neutrophils Percent Auto 36.8 % (45-73); Platelet Count 220 X10*3/uL (160-400); Red Blood Count 4.54 X10*6/uL (4.20-5.50); Red Cell Distribution Width 13.2 % (11.0-16.0); White Blood Count 3.7 X10*3/uL (4.8-10.8)
[2023-05-29 07:43] LABS: Estimated Average Glucose 88 mg/dL; Hemoglobin A1c % 4.7 % (<6.0)
[2023-05-29 08:02] LABS: Alanine Aminotransferase 12 U/L (0-31); Albumin Level 3.8 g/dL (3.5-5.0); Alkaline Phosphatase 71 U/L (39-117); Anion Gap 12 (12-20); Aspartate Amino Transferase 21 U/L (5-31); Bilirubin Total 0.4 mg/dL (0.0-1.0); Blood Urea Nitrogen 20 mg/dL (9-16); C Reactive Protein 0.16 mg/dL (< or = 0.50); Calcium 9.5 mg/dL (8.4-10.2); Carbon Dioxide 27 mmol/L (22-29); Chloride 106 mmol/L (96-108); Cholesterol 184 mg/dL (<200); Estimated Glomerular Filt Rate > 60; Glucose Fasting 83 mg/dL (60-99); Glucose Random 82 mg/dL (60-115); HDL Cholesterol 50 mg/dL (>40); Iron 144 mcg/dL (30-160); LDL Cholesterol Calculated 115 mg/dL (<100); Percent Iron Saturation 52 % (15-50); Sodium 141 mmol/L (135-145); Total Iron Binding Capacity 279 mcg/dL (228-428); Total Protein 6.8 g/dL (6.5-8.0); Triglycerides 96 mg/dL (<150); Unsaturated Iron Binding 135 ug/dL
[2023-05-29 08:24] LABS: Ferritin 129 ng/mL (10-250); Thyroid Stimulating Hormone 0.82 uIU/mL (0.32-4.0); Vitamin D 25-OH Total 40.3 ng/mL (>30)
[2023-05-29 08:31] LABS: Folate 12.5 ng/mL (> or = 4.0); Vitamin B12 809 pg/mL (200-900)
[2023-05-29 08:32] LABS: Insulin 5 uU/mL (2-29)
[2023-06-02 03:09] LABS: Zinc 81 mcg/dL (60-130)
[2023-06-02 17:24] LABS: Vitamin A 53 mcg/dL (38-98)
[2023-06-04 17:04] LABS: Vitamin B1 22 nmol/L (8-30)
== END 2023-05-29 06:58 | disposition home or self-care (01) ==
LOC: HO.LAB 06:57
PROVIDERS: PCP Internal Medicine; Visit Provider Physician Assistant
DX: E66.9 Obesity, unspecified (principal); K74.00 Hepatic fibrosis, unspecified; K76.0 Fatty (change of) liver, not elsewhere classified; E78.5 Hyperlipidemia, unspecified; E03.9 Hypothyroidism, unspecified; D64.9 Anemia, unspecified; N28.9 Disorder of kidney and ureter, unspecified; Z98.84 Bariatric surgery status
CPT/HCPCS: 36415; 80053; 80061; 82306; 82607; 82728; 82746; 83036; 83525; 83540; 84425; 84443; 84590; 84630; 85025; 86140

== ENCOUNTER 2023-09-02 12:13 | Outpatient (AMB) | payer OTHER, SELFPAY ==
--- NOTE | 2023-09-02 12:15 | MHC.OFFVISWM ---
VS Expanded 09/02/23 12:24 BP 120/76 Blood Pressure Location Rt brachial Blood Pressure Position Sitting Pulse 88 Pulse Source Pulse Oximeter Temp 96.5 F L Temperature Source Temporal Artery Scan Pulse Oximetry 98 Oxygen Delivery Method Room Air Height 5 ft 3 in Weight 214 lb BMI 37.9 Body Fat % 43.4 Body Fat Mass 92.8 Fat Free Mass 121.0 Visceral Fat Rating 13.0 Body Water % 40.2 Body Water Mass 86.0 Muscle Mass/Score 114.8 Basal Metabolic Rate/Score 1,682 Intake Visit Reasons: (OV) PO LSG 09/04/21 Allergies No Known Allergies Allergy (Verified 09/02/23 12:18) Medication List - Last Reconciled 09/02/23 by HANK Lucas [id number] 325 mg-12.5 mcg -2.75 mg 1 tab PO BID cetirizine (All Day Allergy (cetirizine)) 10 mg PO DAILY PRN [citrical w D 325/12.5 orally; ] inulin (Fiber Gummies) 4 grams PO DAILY levothyroxine 100 mcg PO DAILY vitamin A 1 cap PO DAILY HPI Comments Details: This?is a?53?yo female who is s/p LSG 09/04/2021. Presents for 2 year post op visit. Weight at last visit in Mar 2023 was 214 pounds with a BMI of 38, weight today is same.? No complaints of nausea, emesis, abdominal pain or reflux, or constipation. Present meal plan includes: 2 shakes Pure Protein powder- mixes with 1% milk will take MVI with a boiled egg dinner meal - protein and veg 1 snack: protein bar, quest chips, swedish yogurt, cottage cheese has been using [place] Snaps green pea snacks or mixed fruit, or mccormick peppers with cottage cheese dip sugar free popsicle sometimes for dessert takes MVI, Ca/D Exercise routine includes: rare, working a lot but did buy a treadmill plans to walk more once great niece is born, bike outdoors [facility] Medical History Allergy-induced asthma COVID-19 vaccine series completed GERD (gastroesophageal reflux disease) Morbid obesity Hypothyroidism Morbid obesity Allergic rhinitis HTN (hypertension) Surgical History S/P laparoscopic sleeve gastrectomy H/O colonoscopy Hx of myringotomy History of tonsillectomy Family History Father Hypertension Cardiac disease Mother Hypertension Cardiac disease Smoker Cancer Maternal Aunt Breast cancer Brother Asthma Substance use disorder Social History (Updated 09/02/23 @ 12:19 by Aurea Bruce CMA) Housing: House Are you a primary critical care unit nurse to a significant other at home: No Do you presently have visiting nurse or other home services: No Alcohol intake: current Alcohol intake frequency: holidays/special occasions only Patient Tobacco Use Status: Never used Tobacco e-Cigarette/Vaping Use: Never Used Second Hand Smoke Exposure: No service: No Current occupational status: employed Cognitive needs: No Hearing needs: No Vision needs: Yes (glasses) Physical Exam Vital Signs: Last Vital Signs Temp 96.5 F L 09/02/23 12:24 Pulse 88 09/02/23 12:24 BP 120/76 09/02/23 12:24 Pulse Ox 98 09/02/23 12:24 Oxygen Delivery Method Room Air 09/02/23 12:24 BMI result Body Mass Index 37.9 Assessment & Plan Assessment & Plan (1) Obesity: Code(s): E66.9 - Obesity, unspecified Category: Medical (2) S/P laparoscopic sleeve gastrectomy: Comment: 09/04/21 Code(s): Z98.84 - Bariatric surgery status Category: Surgical Plan Pt knows she needs to incorporate exercise to help with weight loss. I encouraged even just 15min/day to start. Discussed her various snack choices and which ones would be better than others. Labs recently done in May. Pt having labs done by PCP soon as well. RTC 1 year per pt preference, pt will text me weekly with measurements and can be seen sooner if she desires. Patient is obese and is not considered stable at this time. I spent a total of 30 minutes reviewing/updating records, examining the patient and counseling the patient on weight management as detailed above.
[2023-09-02 12:24] VITALS: BP 120/76; PULSE 88; TEMP 35.8; O2SAT 98; BMI 37.9
== END 2023-09-02 13:05 | disposition home or self-care (01) ==
PROVIDERS: PCP Internal Medicine; Visit Provider Physician Assistant Surgical
DX: E66.9 Obesity, unspecified (principal); Z68.37 Body mass index [BMI] 37.0-37.9, adult; Z90.3 Acquired absence of stomach [part of]; Z98.84 Bariatric surgery status
CPT/HCPCS: 99214

== ENCOUNTER → 2023-09-02 12:13 | Outpatient (BNVA) | payer OTHER, SELFPAY | PROVIDERS: PCP Internal Medicine; Visit Provider Physician Assistant Surgical ==

== ENCOUNTER 2023-09-09 10:37 | Outpatient (AMB) | payer OTHER, SELFPAY ==
[2023-09-09 10:38] VITALS: BP 126/84; BMI 38.6
--- NOTE | 2023-09-09 10:38 | A.OFFVIS_ITS ---
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 She is doing well with no concerns. Attempting to eat a healthy diet with calcium and vitamin D and stays active with exercise-walking. Currently sexually active. Denies any irritation. STI testing offered; she declines. LMP 2-3yrs. ago. Last pap smear; 2016. Last mammogram; 2022. Colonoscopy is UTD, 2020. Denies any family history of ovarian or colon cancer. breast cancer-M.aunt. [facility] Medical History Allergy-induced asthma COVID-19 vaccine series completed GERD (gastroesophageal reflux disease) Morbid obesity Hypothyroidism Morbid obesity Allergic rhinitis HTN (hypertension) Surgical History S/P laparoscopic sleeve gastrectomy H/O colonoscopy Hx of myringotomy History of tonsillectomy Family History Father Hypertension Cardiac disease Mother Hypertension Cardiac disease Smoker Cancer Maternal Aunt Breast cancer Brother Asthma Substance use disorder Social History Housing: House Are you a primary healthcare architect to a significant other at home: No Do you presently have visiting nurse or other home services: No Alcohol intake: current Alcohol intake frequency: holidays/special occasions only Patient Tobacco Use Status: Never used Tobacco e-Cigarette/Vaping Use: Never Used Second Hand Smoke Exposure: No service: No Current occupational status: employed Cognitive needs: No Hearing needs: No Vision needs: Yes (glasses) Female Reproductive History Menstrual Age of Menarche: 12 control method: none Total pregnancies: 0 Date of last pap smear: 07/24/16 (negative) History of abnormal pap smear: Yes (2014 [facility]) Date of Mammogram: 01/04/23 Review of Systems Const All systems reviewed & are unremarkable except as noted in HPI and below Reports as per HPI Eyes Reports no additional complaints ENT Reports no additional complaints Card Reports no additional complaints Resp Reports no additional complaints GI Reports as per HPI and Reports no additional complaints Reports as per HPI Musc Reports no additional complaints Skin/Breast Reports as per HPI Neuro Reports no additional complaints Psych Reports no additional complaints Endo Reports no additional complaints Kyaw/Lymph Reports no additional complaints Aller/Immun Reports no additional complaints Physical Exam Vital Signs: Last Vital Signs BP 126/84 09/09/23 10:38 BMI result Body Mass Index 38.6 Const General: cooperative, healthy appearing, no acute distress, well developed and alert Orientation/consciousness: patient oriented x3 HEENT Head: Yes normal to inspection Eyes General: appearance normal, both eyes and all related structures Neck Neck: Yes normal visual inspection Thyroid: Thyroid normal Chest Chest palpation & inspection: normal inspection of the chest and other (no puckering, dimpling, peau de orange, retraction, discharge, masses) Breast/axilla inspection: normal inspection of the breasts Breast/axilla palpation: normal palpation of the breasts Resp Effort & Inspection: normal respiratory effort GI Inspection: Yes normal to inspection Palpation (GI): Soft to palpation Rectal Exam - Female: deferred General: Yes bladder normal to palpation External Female Exam: normal external appearance and normal appearance of the urethra Speculum Exam - Vagina: normal appearance of the vagina, normal palpation and normal vaginal discharge Speculum Exam - Cervix: normal appearance of the cervix and normal palpation Bimanual exam- vagina & uterus: normal bimanual exam, normal palpation, uterine size normal, bladder normal to palpation, normal palpation and non-tender Bimanual Exam- Adnexa, other: no masses Skin General skin exam: no rashes or lesions noted Rashes: no rashes Neuro General: patient oriented x3 Cognition (Neuro): normal cognition Extrem General: Yes normal to inspection Psych Attitude: cooperative Thought process: Normal thought process present Assessment & Plan Assessment & Plan (1) Encounter for well woman exam with routine gynecological exam: Code(s): Z01.419 - Encounter for gynecological examination (general) (routine) without abnormal findings Category: Medical Plan: Discussed: Current recommendations for pap smears per ASCCP guidelines. Breast awareness, periodic self breast exams and yearly mammogram. Maintain a healthy lifestyle, well balanced diet including Calcium 1,200 mg and Vitamin D 600 IU daily, and routine exercise. Contact the office with any postmenopausal bleeding. Patient verbalizes understanding and agrees to the plan of care. She was given opportunity to ask questions and all questions were answered to the best of my ability. RTO in 1 year for annual stock or delivery clerk exam. This note is constructed using voice recognition software. While every effort has been made to ensure accuracy, continuous mining operator errors may have been included. Orders: Orders Pap Smear Today Z12.4 - Encounter for screening for malignant neoplasm of cervix Coding Level of Care Code New Pt Prev Care 40-64y(88842) Diagnoses Encounter for well woman exam with routine gynecological exam Z01.419
== END 2023-09-09 11:12 | disposition home or self-care (01) ==
PROVIDERS: PCP Internal Medicine; Visit Provider Advanced Practice Midwife
DX: Z01.419 Encounter for gynecological examination (general) (routine) without abnormal findings (principal)
CPT/HCPCS: 99386

== ENCOUNTER 2023-09-09 10:37 | Outpatient (REF) | payer OTHER, SELFPAY ==
[2023-09-15 22:47] LABS: HPV mRNA E6/E7 rflx Not Detected (Not Detected)
== END 2023-09-09 10:38 | disposition home or self-care (01) ==
LOC: HO.LNP 10:37
PROVIDERS: PCP Internal Medicine; Visit Provider Advanced Practice Midwife
DX: Z01.419 Encounter for gynecological examination (general) (routine) without abnormal findings (principal); Z11.51 Encounter for screening for human papillomavirus (HPV)
CPT/HCPCS: 87624; 88142

== ENCOUNTER 2023-10-05 14:02 | Outpatient (AMB) | payer OTHER, SELFPAY ==
[2023-10-05 14:05] VITALS: BP 130/80; PULSE 77; O2SAT 98; BMI 38.4
--- NOTE | 2023-10-05 14:05 | MHC.PC.OV ---
Vital Signs 10/05/23 14:05 Height 5 ft 3 in Weight 217 lb BMI 38.4 BP 130/80 Blood Pressure Location Lt brachial Position Sitting Pulse 77 Pulse Source Pulse Oximeter Pulse Oximetry (%) 98 Oxygen Delivery Method Room Air Intake Visit Reasons: 6mth f/u Senior Business Analyst Required: No Atmospheric Physicist: Not Required per policy Accompanied by: Self / Same As Patient Allergies environmental allergies Allergy (Mild, Verified 10/05/23 14:06) itchy Tobacco use date assessed: 10/05/23 Dental Screening Dental Screen Date: 10/05/23 Did you have a dental visit in the last 12 months?: No Did you have a dental problem in the last 6 months where you did not have access to dental care?: No Was dental information given to patient?: Patient has dentist HPI 6mth f/u HPI Details hypothyroidism on rx; doing well; compliant [facility] Medical History Allergy-induced asthma COVID-19 vaccine series completed GERD (gastroesophageal reflux disease) Morbid obesity Hypothyroidism Morbid obesity Allergic rhinitis HTN (hypertension) Surgical History S/P laparoscopic sleeve gastrectomy H/O colonoscopy Hx of myringotomy History of tonsillectomy Family History Father Hypertension Cardiac disease Mother Hypertension Cardiac disease Smoker Cancer Maternal Aunt Breast cancer Brother Asthma Substance use disorder Social History Housing: House Are you a primary rn homecare to a significant other at home: No Do you presently have visiting nurse or other home services: No Alcohol intake: current Alcohol intake frequency: holidays/special occasions only Patient Tobacco Use Status: Never used Tobacco e-Cigarette/Vaping Use: Never Used Second Hand Smoke Exposure: No service: No Current occupational status: employed Cognitive needs: No Hearing needs: No Vision needs: Yes (glasses) Female Reproductive History Menstrual Age of Menarche: 12 Questionnaire PHQ-9 Over the last 2 weeks, how often have you been bothered by any of the following problems? 1. Little interest or pleasure in doing things: not at all 2. Feeling down, depressed, or hopeless: not at all 3. Trouble falling or staying asleep, or sleeping too much: not at all 4. Feeling tired or having little energy: not at all 5. Poor appetite or overeating: not at all 6. Feeling bad about yourself - or that you are a failure or have let yourself or your family down: not at all 7. Trouble concentrating on things, such as reading the newspaper or watching television: not at all 8. Moving or speaking so slowly that other people could have noticed. Or the opposite - being so fidgety or restless that you have been moving around a lot more than usual: not at all 9. Thoughts that you would be better off or of hurting yourself in some way: not at all Total score: 0 Depression Screening Interpretation: Negative Depression Screening Done: Yes Source: Developed by Drs. Marco Garcia, Shannon Guajardo, Shayne Daigle and colleagues, with an educational dallas from [employer]. Thrive Questionnaire Date Thrive assessed: 10/05/23 I am a: Patient What is your living situation today?: I have a steady place to live Within the past 12 months, did the food you bought not last and you didn't have the money to get more?: Never true Within the past 12 months, did you worry whether your food would run out before you got money to buy more?: Never true Do you have trouble paying for medicines?: No Do you have trouble getting transportation to medical appointments?: No Do you have trouble paying your heating and electricity bill?: No Do you have trouble taking care of your child, family member or friend?: No Do you have trouble with day-to-day activities such as bathing, preparing meals, shopping, managing finances, etc.?: No Are you currently unemployed and looking for a job?: No Are you interested in more education?: No Please select the resources that you would like help with: None THRIVE Score: 0 AUDIT C Alcohol Use Questionnaire (AUDIT-C) 1. How often do you have a drink containing alcohol?: Monthly or less 2. How many drinks containing alcohol do you have on a typical day when you are drinking?: 1 or 2 3. How often do you have six or more drinks on one occasion?: Never Total Score: 1 Score Reviewed/Action Taken: Yes KARLA-7 AMB Questionnaire KARLA-7 Date KARLA - 7 assessed: 10/05/23 Feeling nervous, anxious, or on edge: 0 = Not at all Not being able to stop or control worryin = Not at all Worrying too much about different things: 0 = Not at all Trouble relaxin = Not at all Being so restless that it is hard to sit still: 0 = Not at all Becoming easily annoyed or irritable: 0 = Not at all Feeling afraid as if something awful might happen: 0 = Not at all Total KARLA-7 score (0-4 normal; 5-9 mild; 10-14 moderate; 15-21 severe): 0 Source: Developed by Drs. Marco Garcia, Shannon Guajardo, Shayne Daigle and colleagues, with an educational dallas from [employer]. Review of Systems Const Denies chills, Denies headache(s) and Denies weight loss ENT Denies headache(s) Card Denies chest pain, Denies syncope, Denies irregular heart rhythm and Denies dyspnea Resp Denies chest congestion, Denies cough and Denies dyspnea GI Denies abdominal pain, Denies change in stool character, Denies nausea and Denies vomiting Musc Denies deformity and Denies joint swelling Neuro Denies syncope and Denies headache(s) Physical exam (Primary Care) Vital Signs: Last Vital Signs Pulse 77 10/05/23 14:05 BP 130/80 10/05/23 14:05 Pulse Ox 98 10/05/23 14:05 Oxygen Delivery Method Room Air 10/05/23 14:05 BMI result Body Mass Index 38.4 Tobacco/Smoking Status: Tobacco use Status Tobacco use date assessed 10/05/23 10/05/23 14:07 Patient Tobacco Use Status Never used Tobacco 10/05/23 14:07 e-Cigarette/Vaping Use Never Used 10/05/23 14:07 PHQ-9: PHQ-9 Score PHQ-9: Total score 0 10/05/23 14:07 Depression Screening Interpretation: Negative Thrive Assessment: Date of Thrive Assessment Date Thrive assessed 10/05/23 10/05/23 14:07 Const General: cooperative, comfortable, no acute distress and alert Neck Neck: Yes no lymphadenopathy Thyroid: Thyroid normal Resp Effort & Inspection: normal respiratory effort Auscultation: clear to auscultation bilaterally Percussion: percussion normal Cardio Jugular venous distension: no JVD Palpation: normal PMI Rate: regular rate Rhythm: regular rhythm Heart sounds: S1 normal heart sound present and S2 normal heart sound present GI Inspection: Yes normal to inspection Palpation (GI): No hepatosplenomegaly present Skin General skin exam: no rashes or lesions noted Extrem General: Yes no clubbing, cyanosis or edema Assessment and Plan Assessment & Plan (1) Hypothyroidism: Code(s): E03.9 - Hypothyroidism, unspecified Plan: stable; same rx Orders: Orders Lipid Panel Today Z13.220 - Encounter for screening for lipoid disorders Comprehensive [place]. Panel Fast Today Z13.9 - Encounter for screening, unspecified Thyroid Stimulating Hormone Today Z13.29 - Encounter for screening for other suspected endocrine disorder Complete Blood Count Auto Diff Today Z13.0 - Encounter for screening for diseases of the blood and blood-forming organs and certain disorders involving the immune mechanism Coding Level of Care Code Est Pt Level 3 (23634) Diagnoses Hypothyroidism E03.9 Additional Codes PHQ-9 - 70248 - PHQ-9 Billing: ([id number])
== END 2023-10-05 14:26 | disposition home or self-care (01) ==
PROVIDERS: PCP Internal Medicine; Visit Provider Internal Medicine
DX: E03.9 Hypothyroidism, unspecified (principal)
CPT/HCPCS: 99213

== ENCOUNTER 2023-12-27 17:29 | Emergency (ER) | payer OTHER, SELFPAY ==
--- NOTE | ~2023-12-27 | XR_ITS ---
EXAMINATION: 1. Left ankle. 2. Left foot. CLINICAL INFORMATION: Pain. COMPARISON: None. TECHNIQUE: 1. Left ankle. 3 views 2. Left foot. 3 views. FINDINGS: 1. Left ankle. No fracture. No dislocation. Ankle mortise is congruent. No soft tissue abnormality. 2. Left foot. No fracture. No dislocation. No focal bone lesion. There is a plantar calcaneal spur. XR/XR foot LT min 3V IMPRESSION: 1. Left ankle. Normal left ankle. 2. Left foot. No acute abnormality. Electronically signed by: Robson Brewer MD 12/27/2023 08:23 PM EDT
--- NOTE | ~2023-12-27 | XR_ITS ---
EXAMINATION: 1. Left ankle. 2. Left foot. CLINICAL INFORMATION: Pain. COMPARISON: None. TECHNIQUE: 1. Left ankle. 3 views 2. Left foot. 3 views. FINDINGS: 1. Left ankle. No fracture. No dislocation. Ankle mortise is congruent. No soft tissue abnormality. 2. Left foot. No fracture. No dislocation. No focal bone lesion. There is a plantar calcaneal spur. XR/XR ankle LT min 3V IMPRESSION: 1. Left ankle. Normal left ankle. 2. Left foot. No acute abnormality. Electronically signed by: Robson Brewer MD 12/27/2023 08:23 PM EDT
[2023-12-27 17:38] VITALS: BP 157/102; PULSE 59; RESP 16; TEMP 36.8; O2SAT 97; BMI 39.0
--- NOTE | 2023-12-27 17:44 | ED.LOWEXIN ---
HPI - Extremity Injury (Lower) General Chief Complaint: Extremity Injury, Lower Stated Complaint: left ankle swollen, pain fell 12/24 Time Seen by Provider: 12/27/23 20:59 Source: patient and RN notes reviewed Mode of arrival: ambulatory Limitations: no limitations History of Present Illness ED Provider: Kathy Ho PA-C HPI Narrative: This is a 53-year-old female presents emergency department with complaints of left foot and left ankle pain status post mechanical fall which occurred 2 days ago. She states that she accidentally rolled her left ankle while walking down a curb. Pain worsens with palpation and with weight-bearing. Denies head strike or LOC. No numbness or tingling. No other complaints or concerns at this time. MD complaint: ankle injury and foot injury Onset (ago): day(s) Type of Injury: inversion Place: street/outdoors Severity: moderate Relieving factors: nothing Exacerbating factors: nothing Associated symptoms: swelling Other symptoms: none Treatments prior to arrival: cold therapy and NSAIDS Related Data Home Medications ?Medication ?Instructions ?Recorded ?Confirmed cetirizine 10 mg capsule (All Day 10 mg PO DAILY PRN Allergy Symptoms 06/02/21 09/02/23 Allergy (cetirizine)) inulin 2 gram chewable tablet 4 g PO DAILY 12/17/22 09/02/23 (Fiber Gummies) calcium 325 mg-vit D3 12.5 1 tab PO BID 04/01/23 09/02/23 mcg-zinc 2.75 [id number] tablet Previous Rx's ?Medication ?Instructions ?Recorded citrical w D 325/12.5 See Rx Instructions PO .COMPLEX 03/03/23 #60 tabs vitamin A 3,000 mcg (10,000 unit) 1 cap PO DAILY #30 caps 03/29/23 capsule levothyroxine 100 mcg tablet 100 mcg PO DAILY #90 tabs 10/30/23 Allergies Allergy/AdvReac Type Severity Reaction Status Date / Time environmental allergies Allergy Mild itchy Verified 12/27/23 17:40 Review of Systems Review of Systems: Yes all other systems are reviewed and are negative Constitutional: Constitutional: Reports as per [facility] Past Medical History Medical History Allergy-induced asthma COVID-19 vaccine series completed GERD (gastroesophageal reflux disease) Morbid obesity Hypothyroidism Morbid obesity Allergic rhinitis HTN (hypertension) Surgical History S/P laparoscopic sleeve gastrectomy H/O colonoscopy Hx of myringotomy History of tonsillectomy Family History Family History Father Hypertension Cardiac disease Mother Hypertension Cardiac disease Smoker Cancer Maternal Aunt Breast cancer Brother Asthma Substance use disorder Social History Social History Housing: House Are you a primary care provider to a significant other at home: No Do you presently have visiting nurse or other home services: No Alcohol intake: current Alcohol intake frequency: holidays/special occasions only Patient Tobacco Use Status: Never used Tobacco e-Cigarette/Vaping Use: Never Used Second Hand Smoke Exposure: No service: No Current occupational status: employed Cognitive needs: No Hearing needs: No Vision needs: Yes (glasses) Physical Exam Vital Signs: Vital Signs: Last Vital Signs Temp 97.9 F 12/27/23 21:07 Pulse 62 12/27/23 21:07 Resp 14 12/27/23 21:07 BP 147/78 H 12/27/23 21:07 Pulse Ox 99 12/27/23 21:07 O2 Del Method Room Air 12/27/23 21:07 BMI result Body Mass Index 39.0 Const: General: cooperative, comfortable and no acute distress Orientation/consciousness: patient oriented x3 Limitations: no limitations HEENT: Head: Yes normal to inspection, Yes normocephalic and Yes atraumatic Ears: hearing grossly normal bilaterally General nose exam: Normal external nose present Face and sinus: Yes normal facial exam Mouth: Normal oral and palatal mucosa present, oropharynx normal and moist mucous membranes Throat: Yes posterior oropharynx normal Eyes: General: appearance normal, both eyes and all related structures Eyelids: Yes eyelids normal Conjunctivae: conjunctivae normal Sclerae: sclerae normal Pupils: Equal, round and reactive pupils present EOM: EOMs intact bilaterally Neck: Neck: Yes normal visual inspection, Yes full ROM and Yes no lymphadenopathy Lymphatic: no lymphadenopathy noted Chest: Chest palpation & inspection: normal inspection of the chest Resp: Effort & Inspection: normal respiratory effort and able to speak in complete sentences Auscultation: clear to auscultation bilaterally, no crackles, no rales, no rhonchi and no wheezes Cardio: Rate: regular rate Rhythm: regular rhythm Heart sounds: S1 normal heart sound present and S2 normal heart sound present GI: Inspection: Yes normal to inspection Skin: General skin exam: no rashes or lesions noted Trauma: no lacerations or abrasions Wounds: no wounds Neuro: General: patient oriented x3 and moves all extremities Cranial nerves: Yes Equal, round and reactive pupils present Extrem: Other: Left foot with mild ttp overlying the fifth metatarsal with no bony stepoff or deformity. Mild ecchymosis seen. Lateral and medial mallelous are nontender. Strong DP pulse. Sensation intact. No overlying abrasions noted. General: Yes normal to inspection Right upper extremity: normal to inspection Left upper extremity: normal to inspection Right lower extremity: normal to inspection Course Course Course Narrative: This is an RME: Additional HPI, ROS, PE not included below will be deferred to primary provider. RME assessment and note performed by: Kathy Ho PA-C This is a 53-year-old female presents emergency department with complaints of left foot and left ankle pain status post mechanical fall which occurred 2 days ago. Pain worsens with palpation and with weight-bearing. Plan: X-ray ankle and foot Medical Decision Making Medical Decision Making MDM Narrative: 53 y/o F who presents to the Er with complaints of left foot/ankle pain s/p inversion injury 2 days ago. On arrival, VSS. Pt with ttp overlying left fifth metatarsal region, pain with weight bearing. DDX including fx, sprain, strain, contusion. Xrays reviewed with no bony abnormalities seen. Discussed with pt, given return precautions. Pt stable for d/c. Differential Diagnosis Differential Diagnoses: The differential diagnosis associated with the presentation includes see above Radiology Impression Discussion of test interpretation with radiology: I have reviewed the radiologist's reading. Radiologist Impression: EXAMINATION: 1. Left ankle. 2. Left foot. CLINICAL INFORMATION: Pain. COMPARISON: None. TECHNIQUE: 1. Left ankle. 3 views 2. Left foot. 3 views. FINDINGS: 1. Left ankle. No fracture. No dislocation. Ankle mortise is congruent. No soft tissue abnormality. 2. Left foot. No fracture. No dislocation. No focal bone lesion. There is a plantar calcaneal spur. XR/XR ankle LT min 3V IMPRESSION: 1. Left ankle. Normal left ankle. 2. Left foot. No acute abnormality. Electronically signed by: Robson Brewer MD 12/27/2023 08:23 PM EDT Dictated By: Robson Brewer MD Discharge Plan Discharge Clinical Impression: Strain of foot, left Patient Disposition: Home, Self-Care Instructions: Ankle Strain (ED) Additional Instructions: You were seen in the emergency department after injuring your left ankle and foot. Your x-ray does not show any broken bones. Please rest, ice, elevate your foot. Alternate between ibuprofen and Tylenol as needed for pain. If you continue to have pain and symptoms in your foot, you may follow-up with the orthopedic team, call to make an appointment. If you develop any new or worsening symptoms including but not limited to worsening pain, fevers, chills, chest pain, shortness breath, please return for re-evaluation. Prescriptions: No Action citrical w D 325/12.5 See Rx Instructions PO .COMPLEX Qty: 60 11RF Rx Instructions: orally; vitamin A 3,000 mcg (10,000 unit) capsule 1 cap PO DAILY Qty: 30 11RF levothyroxine 100 mcg tablet 100 mcg PO DAILY Qty: 90 0RF [id number]-copper-debbie 325 mg-12.5 mcg -2.75 mg tablet 1 tab PO BID All Day Allergy (cetirizine) 10 mg capsule 10 mg PO DAILY PRN (Reason: Allergy Symptoms) Fiber Gummies 2 gram tablet,chewable 4 g PO DAILY Referrals: [facility] [Provider Group] Interventions: ED Discharge Assessment Last Done: 12/27/23 21:07 Discharge Date/Time: 12/27/23 21:16 Print Language: Maltese
[2023-12-27 21:01] VITALS: BP 147/78; PULSE 60; RESP 14; TEMP 35.8; O2SAT 99
[2023-12-27 21:07] VITALS: BP 147/78; PULSE 62; RESP 14; TEMP 36.6; O2SAT 99
== END 2023-12-27 21:16 | disposition home or self-care (01) ==
LOC: HO.ED 21:10
PROVIDERS: Emergency Provider Emergency Medicine; PCP Internal Medicine
DX: S96.912A Strain of unspecified muscle and tendon at ankle and foot level, left foot, initial encounter (principal); M25.572 Pain in left ankle and joints of left foot; X50.1XXA Overexertion from prolonged static or awkward postures, initial encounter; Y93.01 Activity, walking, marching and hiking; Y92.480 Sidewalk as the place of occurrence of the external cause; Y99.8 Other external cause status
CPT/HCPCS: 73610; 73630; 99283

== ENCOUNTER 2024-01-18 07:11 | Outpatient (REF) | payer OTHER, SELFPAY ==
--- NOTE | ~2024-01-18 | MM_ITS ---
EXAMINATION: MM SCREENING DIGITAL BREAST TOMOSYNTHESIS, BILATERAL CLINICAL INFORMATION: Screening. Asymptomatic. COMPARISON: Mammography: Comparison is made with available priors TECHNIQUE: Digital breast mammography with tomosynthesis is performed in both the craniocaudal and mediolateral oblique views along with computer-aided detection (CAD). FINDINGS: There are scattered areas of fibroglandular density (ACR BI-RADS breast composition Category b). There are no significant masses, abnormal calcifications, or other abnormalities. MM/MM tomosynthesis screening BI IMPRESSION: No mammographic evidence of malignancy. ASSESSMENT: BI-RADS BI-RADS 1 - Negative RECOMMENDATION: Routine annual mammography screening. 1 year F/U This examination should not preclude the clinical evaluation of a suspicious palpable abnormality. This patient's information was entered into a reminder system with a target due date for their next mammogram. Electronically signed by: Laurel Hanson DO 01/27/2024 06:36 PM EDT
== END 2024-01-18 07:12 | disposition home or self-care (01) ==
LOC: HO.MAMMO 07:11
PROVIDERS: PCP Internal Medicine; Visit Provider Internal Medicine
DX: Z12.31 Encounter for screening mammogram for malignant neoplasm of breast (principal)
CPT/HCPCS: 77063; 77067

== ENCOUNTER → 2024-01-18 07:30 | Outpatient (BNV) | payer OTHER, SELFPAY | PROVIDERS: PCP Internal Medicine; Visit Provider Internal Medicine | DX: Z12.31 Encounter for screening mammogram for malignant neoplasm of breast (principal) | CPT/HCPCS: 77063; 77067 ==

== ENCOUNTER 2024-04-01 07:12 | Outpatient (REF) | payer OTHER, SELFPAY ==
[2024-04-01 07:23] LABS: MANUAL DIFF FLAG NO
[2024-04-01 07:32] LABS: Basophils Absolute Auto 0.1 X10*3/uL (0.0-0.2); Basophils Percent Auto 1.2 % (0-2); Eosinophils Absolute Auto 0.2 X10*3/uL (0.0-0.4); Eosinophils Percent Auto 4.9 % (0-4); Hematocrit 38.5 % (37.0-47.0); Hemoglobin 12.3 g/dl (12.0-16.0); Imm Gran Abs Auto 0.01 X10*3/uL (0.00-0.03); Imm Gran Pct Auto 0.2 % (0.0-0.4); Lymphocytes Percent Auto 48.3 % (20-40); Mean Corpuscular HGB Conc 31.9 g/dl (31.0-35.0); Mean Corpuscular Volume 87.5 fL (80.0-98.0); Mean Platelet Volume 8.7 fL (9.4-12.3); Monocytes Absolute Auto 0.5 X10*3/uL (0.1-1.2); Monocytes Percent Auto 11.9 % (2-11); Neutrophils Absolute Auto 1.4 x10*3/uL (2.0-8.3); Neutrophils Percent Auto 33.5 % (45-73); Platelet Count 214 X10*3/uL (160-400); Red Cell Distribution Width 13.5 % (11.0-16.0); White Blood Count 4.1 X10*3/uL (4.8-10.8)
[2024-04-01 08:12] LABS: Alanine Aminotransferase 20 U/L (0-31); Alkaline Phosphatase 71 U/L (39-117); Anion Gap 11 (12-20); Aspartate Amino Transferase 29 U/L (5-31); Bilirubin Total 0.5 mg/dL (0.0-1.0); Blood Urea Nitrogen 22 mg/dL (9-16); Calcium 9.5 mg/dL (8.4-10.2); Carbon Dioxide 26 mmol/L (22-29); Chloride 109 mmol/L (96-108); Cholesterol 197 mg/dL (<200); Estimated Glomerular Filt Rate > 60; Glucose Fasting 86 mg/dL (60-99); HDL Cholesterol 62 mg/dL (>40); LDL Cholesterol Calculated 120 mg/dL (<100); Potassium 3.8 mmol/L (3.3-5.1); Sodium 142 mmol/L (135-145); Total Protein 6.9 g/dL (6.5-8.0); Triglycerides 79 mg/dL (<150)
[2024-04-01 08:26] LABS: Thyroid Stimulating Hormone 2.26 uIU/mL (0.32-4.0)
== END 2024-04-01 07:13 | disposition home or self-care (01) ==
LOC: HO.LAB 07:12
PROVIDERS: PCP Internal Medicine; Visit Provider Internal Medicine
DX: Z13.220 Encounter for screening for lipoid disorders (principal); Z13.9 Encounter for screening, unspecified; Z13.29 Encounter for screening for other suspected endocrine disorder; Z13.0 Encounter for screening for diseases of the blood and blood-forming organs and certain disorders involving the immune mechanism
CPT/HCPCS: 36415; 80053; 80061; 84443; 85025

== ENCOUNTER 2024-04-06 13:57 | Outpatient (AMB) | payer OTHER, SELFPAY ==
--- NOTE | 2024-04-06 14:05 | A.OFFPC_ITS ---
Vital Signs 04/06/24 14:06 Height 5 ft 3 in Weight 226 lb 2 oz BMI 40.1 BP 120/60 Blood Pressure Location Lt brachial Position Sitting Pulse 62 Pulse Source Pulse Oximeter Pulse Oximetry (%) 97 Oxygen Delivery Method Room Air Intake Visit Reasons: 6 mo f/u - see comments Intake Note: Patient is here to follow up on HTN, Hypothyroidism. Refurbish Technician Required: No Pie Filler: Not Required per policy Accompanied by: Self / Same As Patient Allergies environmental allergies Allergy (Mild, Verified 04/06/24 14:06) itchy Medication List - Last Reconciled 04/06/24 by Doron Garcia MD [id number]-copper-debbie 325 mg-12.5 mcg -2.75 mg 1 tab PO BID cetirizine (All Day Allergy (cetirizine)) 10 mg PO DAILY PRN [citrical w D 325/12.5 orally; ] inulin (Fiber Gummies) 4 grams PO DAILY levothyroxine 100 mcg PO DAILY vitamin A 1 cap PO DAILY Tobacco use date assessed: 04/06/24 Dental Screening Dental Screen Date: 10/05/23 HPI 6 mo f/u - see comments HPI Details hypothyroidism on rx; doing well and compliant with regimen PFSH Medical History Allergy-induced asthma COVID-19 vaccine series completed GERD (gastroesophageal reflux disease) Morbid obesity Hypothyroidism Morbid obesity Allergic rhinitis HTN (hypertension) Surgical History S/P laparoscopic sleeve gastrectomy H/O colonoscopy Hx of myringotomy History of tonsillectomy Family History Father Hypertension Cardiac disease Mother Hypertension Cardiac disease Smoker Cancer Maternal Aunt Breast cancer Brother Asthma Substance use disorder Social History Housing: House Are you a primary health care recruiter to a significant other at home: No Do you presently have visiting nurse or other home services: No Alcohol intake: current Alcohol intake frequency: holidays/special occasions only Patient Tobacco Use Status: Never used Tobacco e-Cigarette/Vaping Use: Former Use Second Hand Smoke Exposure: No service: No Current occupational status: employed Cognitive needs: No Hearing needs: No Vision needs: Yes (glasses) Female Reproductive History Menstrual Age of Menarche: 12 Questionnaire Thrive Questionnaire Date Thrive assessed: 10/05/23 AUDIT C Alcohol Use Questionnaire (AUDIT-C) 2. How many drinks containing alcohol do you have on a typical day when you are drinking?: 1 or 2 3. How often do you have six or more drinks on one occasion?: Less than monthly Total Score: 1 KARLA-7 AMB Questionnaire KARLA-7 Date KARLA - 7 assessed: 10/05/23 Source: Developed by Drs. Marco Garcia, Shannon Guajardo, Shayne Daigle and colleagues, with an educational d[place] from [employer]. Review of Systems Const Denies chills, Denies headache(s) and Denies weight loss ENT Denies headache(s) Card Denies chest pain, Denies syncope, Denies irregular heart rhythm and Denies dysp davie Resp Denies chest congestion, Denies cough and Denies dyspnea GI Denies abdominal pain, Denies change in stool character, Denies nausea and Denies vomiting Musc Denies deformity and Denies joint swelling Neuro Denies syncope and Denies headache(s) Physical exam (Primary Care) Vital Signs: Last Vital Signs Pulse 62 04/06/24 14:06 BP 120/60 04/06/24 14:06 Pulse Ox 97 04/06/24 14:06 Oxygen Delivery Method Room Air 04/06/24 14:06 BMI result Body Mass Index 40.1 Tobacco/Smoking Status: Tobacco use Status Tobacco use date assessed 04/06/24 04/06/24 14:10 Patient Tobacco Use Status Never used Tobacco 04/06/24 14:10 e-Cigarette/Vaping Use Former Use 04/06/24 14:10 Thrive Assessment: Date of Thrive Assessment Date Thrive assessed 10/05/23 04/06/24 14:10 Const General: cooperative, comfortable, no acute distress and alert Neck Neck: Yes no lymphadenopathy Thyroid: Thyroid normal Resp Effort & Inspection: normal respiratory effort Auscultation: clear to auscultation bilaterally Percussion: percussion normal Cardio Jugular venous distension: no JVD Palpation: normal PMI Rate: regular rate Rhythm: regular rhythm Heart sounds: S1 normal heart sound present and S2 normal heart sound present GI Inspection: Yes normal to inspection Palpation (GI): No hepatosplenomegaly present Skin General skin exam: no rashes or lesions noted Extrem General: Yes no clubbing, cyanosis or edema Coding Level of Care Code Est Pt Level 3 (63902) Diagnoses Hypothyroidism E03.9 Assessment & Plan Assessment & Plan (1) Hypothyroidism: Code(s): E03.9 - Hypothyroidism, unspecified Category: Medical Plan: stable; same rx Medications: Refilled levothyroxine 100 mcg PO DAILY 90 tabs 0RF
[2024-04-06 14:06] VITALS: BP 120/60; PULSE 62; O2SAT 97; BMI 40.1
== END 2024-04-06 14:25 | disposition home or self-care (01) ==
PROVIDERS: PCP Internal Medicine; Visit Provider Internal Medicine
DX: E03.9 Hypothyroidism, unspecified (principal)

== ENCOUNTER → 2024-04-06 13:57 | Outpatient (BNVA) | payer OTHER, SELFPAY | PROVIDERS: PCP Internal Medicine; Visit Provider Internal Medicine ==

== ENCOUNTER 2024-09-01 06:44 | Outpatient (REF) | payer OTHER, SELFPAY ==
[2024-09-01 07:03] LABS: MANUAL DIFF FLAG NO
[2024-09-01 07:44] LABS: Estimated Average Glucose 97 mg/dL; Hemoglobin A1C 107.5246 umol/L; Total Hemoglobin (HGBA1C) 3472.5101 umol/L
[2024-09-01 07:47] LABS: Basophils Absolute Auto 0.1 X10*3/uL (0.0-0.2); Basophils Percent Auto 1.2 % (0-2); Eosinophils Absolute Auto 0.2 X10*3/uL (0.0-0.4); Eosinophils Percent Auto 4.2 % (0-4); Hematocrit 40.4 % (37.0-47.0); Hemoglobin 13.1 g/dl (12.0-16.0); Imm Gran Abs Auto 0.01 X10*3/uL (0.00-0.03); Imm Gran Pct Auto 0.2 % (0.0-0.4); Lymphocytes Absolute Auto 1.9 X10*3/uL (1.2-4.9); Lymphocytes Percent Auto 43.3 % (20-40); Mean Corpuscular HGB Conc 32.4 g/dl (31.0-35.0); Mean Corpuscular Hemoglobin 28.1 pg (27.0-33.0); Mean Corpuscular Volume 86.7 fL (80.0-98.0); Monocytes Absolute Auto 0.4 X10*3/uL (0.1-1.2); Monocytes Percent Auto 9.5 % (2-11); Neutrophils Absolute Auto 1.8 x10*3/uL (2.0-8.3); Neutrophils Percent Auto 41.6 % (45-73); Platelet Count 242 X10*3/uL (160-400); Red Blood Count 4.66 X10*6/uL (4.20-5.50); Red Cell Distribution Width 13.6 % (11.0-16.0); White Blood Count 4.3 X10*3/uL (4.8-10.8)
[2024-09-01 08:05] LABS: Alanine Aminotransferase 17 U/L (0-31); Alkaline Phosphatase 79 U/L (39-117); Anion Gap 10 (12-20); Aspartate Amino Transferase 29 U/L (5-31); Bilirubin Total 0.5 mg/dL (0.0-1.0); Blood Urea Nitrogen 20 mg/dL (9-16); C Reactive Protein 0.22 mg/dL (< or = 0.50); Calcium 9.8 mg/dL (8.4-10.2); Carbon Dioxide 28 mmol/L (22-29); Chloride 110 mmol/L (96-108); Cholesterol 192 mg/dL (<200); Estimated Glomerular Filt Rate > 60; Glucose Random 89 mg/dL (60-115); HDL Cholesterol 59 mg/dL (>40); Iron 140 mcg/dL (30-160); LDL Cholesterol Calculated 115 mg/dL (<100); Percent Iron Saturation 48 % (15-50); Potassium 4.1 mmol/L (3.3-5.1); Sodium 144 mmol/L (135-145); Total Iron Binding Capacity 293 mcg/dL (228-428); Total Protein 7.1 g/dL (6.5-8.0); Triglycerides 94 mg/dL (<150); Unsaturated Iron Binding 153 ug/dL
[2024-09-01 08:28] LABS: Folate 15.2 ng/mL (> or = 4.0); Vitamin B12 1035 pg/mL (200-900)
[2024-09-01 08:31] LABS: Ferritin 113 ng/mL (10-250); Vitamin D 25-OH Total 39.7 ng/mL (>30)
[2024-09-01 09:08] LABS: Insulin 7 uU/mL (2-29)
[2024-09-05 03:18] LABS: Zinc 74 mcg/dL (60-130)
[2024-09-06 00:33] LABS: Vitamin A 59 mcg/dL (38-98)
[2024-09-09 16:19] LABS: Vitamin B1 20 nmol/L (8-30)
== END 2024-09-01 06:45 | disposition home or self-care (01) ==
LOC: HO.LAB 06:44
PROVIDERS: Visit Provider Physician Assistant Surgical
DX: Z98.84 Bariatric surgery status (principal)
CPT/HCPCS: 36415; 80053; 80061; 82306; 82607; 82728; 82746; 83036; 83525; 83540; 84425; 84443; 84590; 84630; 85025; 86140

== ENCOUNTER 2024-09-05 12:12 | Outpatient (AMB) | payer OTHER, SELFPAY ==
--- NOTE | 2024-09-05 12:29 | MHC.OFFVISWM ---
VS Expanded 09/05/24 12:42 BP 170/87 H Blood Pressure Location Rt brachial Blood Pressure Position Sitting Pulse 65 Pulse Source Pulse Oximeter Temp 95.9 F L Temperature Source Temporal Artery Scan Pulse Oximetry 96 Oxygen Delivery Method Room Air Height 5 ft 3 in Weight 230 lb 12.8 oz BMI 40.9 Body Fat % 45.8 Body Fat Mass 105.6 Fat Free Mass 125.0 Visceral Fat Rating 14.0 Body Water % 38.5 Body Water Mass 88.8 Muscle Mass/Score 118.6 Basal Metabolic Rate/Score 1,752 Intake Visit Reasons: (OV) PO LSG 09/04/21 Allergies environmental allergies Allergy (Mild, Verified 09/05/24 12:37) itchy Medication List - Last Reconciled 09/05/24 by HANK Lucas [id number]-copper-debbie 325 mg-12.5 mcg -2.75 mg 1 tab PO BID cetirizine (All Day Allergy (cetirizine)) 10 mg PO DAILY PRN [citrical w D 325/12.5 orally; ] inulin (Fiber Gummies) 4 grams PO DAILY levothyroxine 100 mcg PO DAILY HPI Comments Details: This?is a?54?yo F who is s/p LSG 09/04/2021. Presents for 3yr post op visit. Weight at last visit on 09/02/2023 was 214 pounds with a BMI of 37.9, weight today is 230.8 pounds, representing a 16.8 pound weight gain with a BMI today of 40.9.? No complaints of nausea, emesis, abdominal pain or reflux, or constipation. Reports a lot of stress, some family deaths. Reports she took in more salt yesterday. Present meal plan includes: 2 shakes Pure Protein powder- mixes with 1% milk will take MVI with a boiled egg dinner meal - protein and veg 1 snack: protein bar, quest chips, turkish yogurt, cottage cheese has been using [place] [employer] green pea snacks or mixed fruit, or mccormick peppers with cottage cheese dip sugar free popsicle sometimes for dessert -restarted shakes in the morning -doing fine with hydration takes MVI, Ca/D Exercise routine includes: knows she has not been exercising enough has a treadmill plans to be outdoors more now that weather is better Have you been diagnosed with reflux (GERD)? prior to surgery Score 0-5: 0=no symptoms, 1=noticeable but not bothersome (slight or occasional), 2=noticeable, bothersome but not daily, 3=bothersome and daily, 4=affects daily activities, 5=incapacitating, unable to do daily activities How bad is the heartburn: 0 Heartburn when lying down: 0 Heartburn when standing up: 0 Heartburn after meals: 0 Does heartburn change your diet: 0 Does heartburn wake you up from sleep: 0 Do you have difficulty swallowin Do you have pain with swallowin If you take medication for reflux, does this affect your daily life: 0 Total score: 0 PFSH Medical History Allergy-induced asthma COVID-19 vaccine series completed GERD (gastroesophageal reflux disease) Morbid obesity Hypothyroidism Morbid obesity Allergic rhinitis HTN (hypertension) Surgical History S/P laparoscopic sleeve gastrectomy H/O colonoscopy Hx of myringotomy History of tonsillectomy Family History Father Hypertension Cardiac disease Mother Hypertension Cardiac disease Smoker Cancer Maternal Aunt Breast cancer Brother Asthma Substance use disorder Social History Housing: House Are you a primary aged or disabled carer to a significant other at home: No Do you presently have visiting nurse or other home services: No Alcohol intake: current Alcohol intake frequency: holidays/special occasions only Patient Tobacco Use Status: Never used Tobacco e-Cigarette/Vaping Use: Former Use Second Hand Smoke Exposure: No service: No Current occupational status: employed Cognitive needs: No Hearing needs: No Vision needs: Yes (glasses) Female Reproductive History Menstrual Age of Menarche: 12 Assessment & Plan Assessment & Plan (1) S/P laparoscopic sleeve gastrectomy: Comment: 09/04/21 Code(s): Z98.84 - Bariatric surgery status Category: Surgical (2) Morbid obesity: Code(s): E66.01 - Morbid (severe) obesity due to excess calories Category: Medical Plan Pt knows her exercise is lacking. She plans to try to increase this. Labs reviewed today, vit A/B1 still pending. She will monitor her BP at home to make sure it is not consistently elevated. She is considering getting a home exercise bike. RTC 1 year.
[2024-09-05 12:42] VITALS: BP 170/87; PULSE 65; TEMP 35.5; O2SAT 96; BMI 40.9
== END 2024-09-05 12:57 | disposition home or self-care (01) ==
LOC: HO.HBS 12:12
PROVIDERS: PCP Internal Medicine; Visit Provider Physician Assistant Surgical
DX: E66.01 Morbid (severe) obesity due to excess calories (principal); E66.813 Obesity, class 3; Z68.41 Body mass index [BMI] 40.0-44.9, adult; Z98.84 Bariatric surgery status
CPT/HCPCS: 99214

== ENCOUNTER 2024-09-14 07:44 | Outpatient (AMB) | payer OTHER, SELFPAY ==
--- NOTE | 2024-09-14 07:45 | MHC.OFFVIS ---
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 Doing well with no safety person concerns. Currently sexually active. Denies any vaginal dryness or irritation. STI testing offered; she declines. Attempting to eat a healthy diet with calcium and vitamin D, no regular exercise. Last pap smear; 2023, negative. Last mammogram; 2019. Colonoscopy is UTD. Denies any family history of ovarian or colon cancer. FH breast cancer. [facility] Medical History Allergy-induced asthma COVID-19 vaccine series completed GERD (gastroesophageal reflux disease) Morbid obesity Hypothyroidism Morbid obesity Allergic rhinitis HTN (hypertension) Surgical History S/P laparoscopic sleeve gastrectomy H/O colonoscopy Hx of myringotomy History of tonsillectomy Family History Father Hypertension Cardiac disease Mother Hypertension Cardiac disease Smoker Cancer Maternal Aunt Breast cancer Brother Asthma Substance use disorder Social History Housing: House Are you a primary resident care assistant to a significant other at home: No Do you presently have visiting nurse or other home services: No Alcohol intake: current Alcohol intake frequency: holidays/special occasions only Patient Tobacco Use Status: Never used Tobacco e-Cigarette/Vaping Use: Former Use Second Hand Smoke Exposure: No service: No Current occupational status: employed Cognitive needs: No Hearing needs: No Vision needs: Yes (glasses) Female Reproductive History Menstrual Age of Menarche: 12 Menopause type: natural Total pregnancies: 0 Date of last pap smear: 09/09/23 (neg pap and hpv) History of abnormal pap smear: Yes (2014 ascus) Date of Mammogram: 01/18/24 (Birad 1) Review of Systems Const All systems reviewed & are unremarkable except as noted in HPI and below Reports as per HPI Eyes Reports no additional complaints ENT Reports no additional complaints Card Reports no additional complaints Resp Reports no additional complaints GI Reports as per HPI and Reports no additional complaints Reports as per HPI Musc Reports no additional complaints Skin/Breast Reports as per HPI Neuro Reports no additional complaints Psych Reports no additional complaints Endo Reports no additional complaints Kyaw/Lymph Reports no additional complaints Aller/Immun Reports no additional complaints Physical Exam Vital Signs: BMI result Body Mass Index 40.7 Const General: cooperative, healthy appearing, no acute distress, well developed and alert Orientation/consciousness: patient oriented x3 HEENT Head: Yes normal to inspection Eyes General: appearance normal, both eyes and all related structures Neck Neck: Yes normal visual inspection Thyroid: Thyroid normal Chest Chest palpation & inspection: normal inspection of the chest and other (no puckering, dimpling, peau de orange, retraction, discharge, masses) Breast/axilla inspection: normal inspection of the breasts Breast/axilla palpation: normal palpation of the breasts Resp Effort & Inspection: normal respiratory effort GI Inspection: Yes normal to inspection and Yes scar Palpation (GI): Soft to palpation Rectal Exam - Female: deferred General: Yes bladder normal to palpation External Female Exam: normal external appearance and normal appearance of the urethra Speculum Exam - Vagina: normal appearance of the vagina, normal palpation, normal vaginal discharge and vagina atrophic Speculum Exam - Cervix: normal appearance of the cervix and normal palpation Bimanual exam- vagina & uterus: normal bimanual exam, normal palpation, uterine size normal, bladder normal to palpation, normal palpation and non-tender Bimanual Exam- Adnexa, other: no masses Skin General skin exam: no rashes or lesions noted Rashes: no rashes Neuro General: patient oriented x3 Cognition (Neuro): normal cognition Extrem General: Yes normal to inspection Psych Attitude: cooperative Thought process: Normal thought process present Assessment & Plan Assessment & Plan (1) Encounter for well woman exam with routine gynecological exam: Code(s): Z01.419 - Encounter for gynecological examination (general) (routine) without abnormal findings Category: Medical Plan Discussed: Current recommendations for pap smears per ASCCP guidelines. Breast awareness, periodic self breast exams and yearly mammogram. Maintain a healthy lifestyle, well balanced diet including Calcium 1,200 mg and Vitamin D 600 IU daily, and routine exercise. Contact the office with any postmenopausal bleeding. Patient verbalizes understanding and agrees to the plan of care. She was given opportunity to ask questions and all questions were answered to the best of my ability. RTO in 1 year for annual safety person exam. This note is constructed using voice recognition software. While every effort has been made to ensure accuracy, automatic pad making machine operator errors may have been included. Coding Level of Care Code Est Pt Prev Care 40-64y(83085) Diagnoses Encounter for well woman exam with routine gynecological exam Z01.419
[2024-09-14 07:46] VITALS: BP 120/84; BMI 40.7
== END 2024-09-14 08:09 | disposition home or self-care (01) ==
LOC: HO.HWS 07:44
PROVIDERS: Visit Provider Advanced Practice Midwife
DX: Z01.419 Encounter for gynecological examination (general) (routine) without abnormal findings (principal)
CPT/HCPCS: 99396; 99459

== ENCOUNTER 2024-09-19 14:44 | Outpatient (AMB) | payer OTHER, SELFPAY ==
[2024-09-19 14:47] VITALS: BP 100/72; PULSE 75; O2SAT 97; BMI 41.3
--- NOTE | 2024-09-19 14:47 | A.OFFPC_ITS ---
Vital Signs 09/19/24 14:47 Height 5 ft 3 in Weight 233 lb 2 oz BMI 41.3 BP 100/72 Blood Pressure Location Lt brachial Position Sitting Pulse 75 Pulse Source Pulse Oximeter Pulse Oximetry (%) 97 Oxygen Delivery Method Room Air Intake Visit Reasons: annual exam/krystal DR Garcia Strategic Communications Specialist Required: No Accompanied by: Self / Same As Patient Allergies environmental allergies Allergy (Mild, Verified 09/19/24 15:23) itchy Medication List - Last Reconciled 09/19/24 by Siomara Villafana PA-C [id number] 325 mg-12.5 mcg -2.75 mg 1 tab PO BID cetirizine (All Day Allergy (cetirizine)) 10 mg PO DAILY PRN [citrical w D 325/12.5 PO DAILY] inulin (Fiber Gummies) 4 grams PO DAILY levothyroxine 100 mcg PO DAILY Tobacco use date assessed: 09/19/24 Dental Screening Dental Screen Date: 09/19/24 Did you have a dental visit in the last 12 months?: Yes Did you have a dental problem in the last 6 months where you did not have access to dental care?: No Was dental information given to patient?: Patient has dentist HPI annual exam/krystal DR Garcia HPI Details 54-year-old female with past medical his tory of hypothyroidism, hypertension, morbid obesity, GERD cause fatty liver disease with fibrosis last seen by Dr. Garcia coming in for transfer of care. Patient has been following with weight management last seen 08/2024 s/p sleeve gastrectomy plan to follow up in 1 year. Annual wellness exam with her mobility developer was completed in August. Presenting with a transfer of care and routine follow-up. She underwent a sleeve gastrectomy three years ago with initial successful weight reduction; however, recent stress has led to a 30-pound weight regain. She plans to incorporate more exercise, specifically lunch walks, to manage her weight. Her medical history is significant for hypothyroidism, managed with regular thyroid function tests, GERD, which improved post-surgery, and essential hypertension under control. pap smears: UTD with edger hand mammo: 01/2024 colonoscopy: completed 2020 repeat in 10 years [facility] Medical History Allergy-induced asthma COVID-19 vaccine series completed GERD (gastroesophageal reflux disease) Morbid obesity Hypothyroidism Morbid obesity Allergic rhinitis HTN (hypertension) Surgical History S/P laparoscopic sleeve gastrectomy H/O colonoscopy Hx of myringotomy History of tonsillectomy Family History Father Hypertension Cardiac disease Mother Hypertension Cardiac disease Smoker Cancer Maternal Aunt Breast cancer Brother Asthma Substance use disorder Social History Housing: House Are you a primary respiratory care program director to a significant other at home: No Do you presently have visiting nurse or other home services: No Alcohol intake: current Alcohol intake frequency: holidays/special occasions only Patient Tobacco Use Status: Never used Tobacco e-Cigarette/Vaping Use: Former Use Second Hand Smoke Exposure: No service: No Current occupational status: employed Cognitive needs: No Hearing needs: No Vision needs: Yes (glasses) Female Reproductive History Menstrual Age of Menarche: 12 Questionnaire PHQ-9 Over the last 2 weeks, how often have you been bothered by any of the following problems? 1. Little interest or pleasure in doing things: not at all 2. Feeling down, depressed, or hopeless: not at all 3. Trouble falling or staying asleep, or sleeping too much: not at all 4. Feeling tired or having little energy: not at all 5. Poor appetite or overeating: not at all 6. Feeling bad about yourself - or that you are a failure or have let yourself or your family down: not at all 7. Trouble concentrating on things, such as reading the newspaper or watching television: not at all 8. Moving or speaking so slowly that other people could have noticed. Or the opposite - being so fidgety or restless that you have been moving around a lot more than usual: not at all 9. Thoughts that you would be better off or of hurting yourself in some way: not at all Total score: 0 Depression Screening Interpretation: Negative Depression Screening Done: Yes 45247 - PHQ-9 Billing: Yes Source: Developed by Drs. Marco Garcia, Shannon BShayne Chen and colleagues, with an educational dallas from [employer]. Thrive Questionnaire Date Thrive assessed: 09/19/24 I am a: Patient What is your living situation today?: I have a steady place to live Within the past 12 months, did the food you bought not last and you didn't have the money to get more?: Never true Within the past 12 months, did you worry whether your food would run out before you got money to buy more?: Never true Do you have trouble paying for medicines?: No Do you have trouble getting transportation to medical appointments?: No Do you have trouble paying your heating and electricity bill?: No Do you have trouble taking care of your child, family member or friend?: No Do you have trouble with day-to-day activities such as bathing, preparing meals, shopping, managing finances, etc.?: No Are you currently unemployed and looking for a job?: No Are you interested in more education?: No Please select the resources that you would like help with: None Currently or been in a relationship where the following occur: No concerns reported THRIVE Score: 0 AUDIT C Alcohol Use Questionnaire (AUDIT-C) 1. How often do you have a drink containing alcohol?: Monthly or less 2. How many drinks containing alcohol do you have on a typical day when you are drinking?: 1 or 2 3. How often do you have six or more drinks on one occasion?: Less than monthly Total Score: 2 KARLA-7 AMB Questionnaire KARLA-7 Date KARLA - 7 assessed: 09/19/24 Feeling nervous, anxious, or on edge: 0 = Not at all Not being able to stop or control worryin = Not at all Worrying too much about different things: 0 = Not at all Trouble relaxin = Not at all Being so restless that it is hard to sit still: 0 = Not at all Becoming easily annoyed or irritable: 0 = Not at all Feeling afraid as if something awful might happen: 0 = Not at all Total KARLA-7 score (0-4 normal; 5-9 mild; 10-14 moderate; 15-21 severe): 0 Source: Developed by Drs. Marco Garcia, Shayne Jefferson and colleagues, with an educational dallas from [employer]. KARLA-7 Assessment Billing KARLA-7 Assessment Tool: KARLA-7 Assessment 43179 Review of Systems Const Denies body aches, Denies fatigue, Denies fever(s), Denies frequent falls, Denies headache(s) and Denies weakness Eyes Reports no additional complaints and Denies change in vision ENT Denies dysphagia, Denies dizziness, Denies facial pain, Denies headache(s), Denies nasal congestion and Denies odynophagia Card Denies chest pain, Denies syncope, Denies irregular heart rhythm, Denies leg edema, Denies lightheadedness and Denies dyspnea Resp Denies cough and Denies dyspnea GI Denies constipation, Denies dysphagia, Denies dyspepsia, Denies diarrhea, Denies nausea, Denies odynophagia and Denies vomiting Denies urinary frequency, Denies dysuria, Denies urinary hesitancy and Denies urinary urgency Musc Denies back pain and Denies myalgias Skin/Breast Reports system reviewed and no additional complaints, except as documented Neuro Denies dizziness, Denies syncope, Denies frequent falls, Denies headache(s) and Denies weakness Psych Reports no additional complaints Endo Denies fatigue Physical exam (Primary Care) Vital Signs: Last Vital Signs Pulse 75 09/19/24 14:47 BP 100/72 09/19/24 14:47 Pulse Ox 97 09/19/24 14:47 Oxygen Delivery Method Room Air 09/19/24 14:47 BMI result Body Mass Index 41.3 Tobacco/Smoking Status: Tobacco use Status Tobacco use date assessed 09/19/24 09/19/24 15:05 Patient Tobacco Use Status Never used Tobacco 09/19/24 15:05 e-Cigarette/Vaping Use Former Use 09/19/24 15:05 PHQ-9: PHQ-9 Score PHQ-9: Total score 0 09/19/24 15:30 Depression Screening Interpretation: Negative Thrive Assessment: Date of Thrive Assessment Date Thrive assessed 09/19/24 09/19/24 15:05 Currently or been in a relationship where the following occur: No concerns reported Const General: cooperative, healthy appearing, comfortable and no acute distress Orientation/consciousness: patient oriented x3 HENMT Head: Yes normocephalic Ears: hearing grossly normal bilaterally, external ears normal, TM's normal bilaterally, TM normal on the left and Abnormal EAC present cerumen impaction on the right General nose exam: Normal external nose present Face and sinus: Yes normal facial exam and Yes sinuses nontender Mouth: Normal oral and palatal mucosa present and tongue normal Throat: Yes posterior oropharynx normal Eyes General: appearance normal, both eyes and all related structures Conjunctivae: conjunctivae normal Pupils: Equal, round and reactive pupils present EOM: EOMs intact bilaterally and No Nystagmus present Neck Neck: Yes normal visual inspection, Yes full ROM and Yes no lymphadenopathy Chest Chest palpation & inspection: normal inspection of the chest Resp Effort & Inspection: normal respiratory effort Auscultation: clear to auscultation bilaterally, no crackles, no rales, no rhonchi, no wheezes and breath sounds present Cardio Rate: regular rate Rhythm: regular rhythm Peripheral pulses: radial pulses present and dorsalis pedis present GI Inspection: Yes normal to inspection and No Abdominal wall edema Palpation (GI): Soft to palpation, not firm and nontender Auscultation: normal bowel sounds Rectal Exam - Female: deferred General: Yes no CVA tenderness Back/Spine/Pelvis Back: no CVA tenderness Skin General skin exam: no rashes or lesions noted Neuro General: patient oriented x3 Cranial nerves: Yes Equal, round and reactive pupils present, Yes Midline tongue present, Yes Ability to bilaterally elevate shoulders present and No Nystagmus present Gait exam (Neuro): Normal gait present Extrem General: Yes normal to inspection, Yes full ROM, No no pedal edema and No edema Psych Speech and movement: Normal speech and movement present Affect: normal affect Insight: Good insight present (Psych) Judgement: Good judgement present (Psych) Coding Level of Care Code Est Pt Prev Care 40-64y(21846) Diagnoses Annual physical exam Z00.00 Obesity E66.9 Steatosis, liver K76.0 Sleep apnea G47.30 Hypertension I10 Hypothyroidism E03.9 GERD (gastroesophageal reflux disease) K21.9 Hypercholesterolemia E78.00 Impacted cerumen, right ear H61.21 Additional Codes KARLA-7 Assessment Billing - KARLA-7 Assessment Tool: KARLA-7 Assessment 44215 ([id number]) PHQ-9 - 74874 - PHQ-9 Billing: Yes ([id number]) Assessment & Plan Assessment & Plan (1) Annual physical exam: Code(s): Z00.00 - Encounter for general adult medical examination without abnormal findings Category: Medical Plan: Patient is up-to-date on all recommended routine screenings and vaccinations for her age. Blood work is up-to-date and has been reviewed with the patient at today's visit. Healthy diet and regular exercise is encouraged. Plan to follow up in 6 months or sooner as needed (2) Obesity: Code(s): E66.9 - Obesity, unspecified Category: Medical Plan: Healthy diet and regular exercise is encouraged. (3) Steatosis, liver: Code(s): K76.0 - Fatty (change of) liver, not elsewhere classified Category: Medical Plan: Healthy diet and regular exercise is encouraged. (4) Sleep apnea: Comment: Noted during procedure. Recommend testing Code(s): G47.30 - Sleep apnea, unspecified Category: Medical Plan: Declining evaluation today, denies any shortness of breath or choking episodes at bedtime or throughout the night. (5) Hypertension: Code(s): I10 - Essential (primary) hypertension Category: Medical Plan: Improved with weight loss. Avoid salt intake and encourage healthy diet and regular exercise. (6) Hypothyroidism: Code(s): E03.9 - Hypothyroidism, unspecified Category: Medical Plan: Continue on Levothyroxine and monitor with routine blood work. (7) GERD (gastroesophageal reflux disease): Code(s): K21.9 - Gastro-esophageal reflux disease without esophagitis Category: Medical Plan: Avoid trigger foods such as citrus, tomato products, soda, caffeine, spicy foods and other foods that may be irritating to your stomach. Avoid laying flat 3-4 hours after eating and elevate the head of the bed 30 degrees to prevent acid from moving into the esophagus. Improved with bariatric surgery. (8) Hypercholesterolemia: Code(s): E78.00 - Pure hypercholesterolemia, unspecified Category: Medical Plan: Avoid foods that are high in cholesterol such as red meat, fried foods, eggs and baked goods. Triglyceride goal of less than 150 and LDL goal of less than 130. At goal on last labs. (9) Impacted cerumen, right ear: Code(s): H61.21 - Impacted cerumen, right ear Category: Medical Plan: Patient having impacted cerumen of the right ear recommend the use of Debrox drops and schedule follow up to have ear cleaned. Plan This note was constructed using voice recognition software. While every effort has been made to ensure accuracy and order packer or packager, still areas may have been included sometimes these areas may affect the content or meeting of the given symptoms. Total time spent caring for the patient today was 30 minutes. This includes time spent before the visit reviewing the chart, time spent during the visit, and time spent after the visit and documentation. Patient was informed and verbally consented to the use of an ambient scribe for clinic note documentation during this visit. Orders: Orders TSH reflex Free T4 Today E03.9 - Hypothyroidism, unspecified, Z00.00 - Encounter for general adult medical examination without abnormal findings Free T4 (Free Thyroxine) Today E03.9 - Hypothyroidism, unspecified, Z00.00 - Encounter for general adult medical examination without abnormal findings
== END 2024-09-19 15:43 | disposition home or self-care (01) ==
LOC: HO.HMCH 14:45
PROVIDERS: PCP Internal Medicine
DX: Z00.00 Encounter for general adult medical examination without abnormal findings (principal); I10 Essential (primary) hypertension; E66.9 Obesity, unspecified; Z68.41 Body mass index [BMI] 40.0-44.9, adult; K76.0 Fatty (change of) liver, not elsewhere classified; G47.30 Sleep apnea, unspecified; E03.9 Hypothyroidism, unspecified; K21.9 Gastro-esophageal reflux disease without esophagitis; E78.00 Pure hypercholesterolemia, unspecified; H61.21 Impacted cerumen, right ear

== ENCOUNTER → 2024-09-19 14:44 | Outpatient (BNVA) | payer OTHER, SELFPAY | PROVIDERS: PCP Internal Medicine | DX: Z00.00 Encounter for general adult medical examination without abnormal findings (principal); E03.9 Hypothyroidism, unspecified; I10 Essential (primary) hypertension; E66.01 Morbid (severe) obesity due to excess calories; K21.9 Gastro-esophageal reflux disease without esophagitis; K76.0 Fatty (change of) liver, not elsewhere classified; G47.30 Sleep apnea, unspecified; E78.00 Pure hypercholesterolemia, unspecified; H51.21 Internuclear ophthalmoplegia, right eye; Z98.84 Bariatric surgery status; Z68.41 Body mass index [BMI] 40.0-44.9, adult | CPT/HCPCS: 96127 ==

== ENCOUNTER 2025-01-30 07:16 | Outpatient (REF) | payer OTHER, SELFPAY | END 2025-01-30 07:17 | disposition home or self-care (01) | LOC: HO.MAMMO 07:16 | DX: Z12.31 Encounter for screening mammogram for malignant neoplasm of breast (principal) | CPT/HCPCS: 77063; 77067 ==

== ENCOUNTER → 2025-01-30 07:30 | Outpatient (BNV) | payer OTHER, SELFPAY | PROVIDERS: Visit Provider Radiology Body Imaging | DX: Z12.31 Encounter for screening mammogram for malignant neoplasm of breast (principal) | CPT/HCPCS: 77063; 77067 ==

== ENCOUNTER 2025-03-16 08:24 | Outpatient (REF) | payer OTHER, SELFPAY ==
[2025-03-16 10:17] LABS: Free T4 (Free Thyroxine) 1.26 ng/dL (0.71-1.85)
== END 2025-03-16 08:25 | disposition home or self-care (01) ==
LOC: HO.LAB 08:24
DX: Z00.00 Encounter for general adult medical examination without abnormal findings (principal); E03.9 Hypothyroidism, unspecified
CPT/HCPCS: 36415; 84439; 84443

== ENCOUNTER 2025-03-22 15:46 | Outpatient (AMB) | payer OTHER, SELFPAY ==
--- NOTE | 2025-03-22 16:05 | MHC.PC.OV ---
Vital Signs 03/22/25 16:06 Height 5 ft 3 in Weight 249 lb 2 oz BMI 44.1 BP 150/98 H Blood Pressure Location Lt brachial Position Sitting Respiration 18 Pulse 67 Pulse Source Pulse Oximeter Temp Source Temporal Artery Scan Pulse Oximetry (%) 98 Oxygen Delivery Method Room Air Intake Visit Reasons: f/u thyroid Adoption Counselor Required: No Accompanied by: Self / Same As Patient Allergies environmental allergies Allergy (Mild, Verified 03/22/25 16:15) itchy Medication List - Last Reconciled 03/22/25 by Siomara Villafana PA-C [id number] 325 mg-12.5 mcg -2.75 mg 1 tab PO BID cetirizine (All Day Allergy (cetirizine)) 10 mg PO DAILY PRN [citrical w D 325/12.5 PO DAILY] inulin (Fiber Gummies) 4 grams PO DAILY levothyroxine 100 mcg PO DAILY Tobacco use date assessed: 03/22/25 Dental Screening Dental Screen Date: 03/22/25 Did you have a dental visit in the last 12 months?: Yes Did you have a dental problem in the last 6 months where you did not have access to dental care?: No Was dental information given to patient?: Patient has dentist HPI f/u thyroid HPI Details 55-year-old female with past medical history of hypothyroidism, hypertension, morbid obesity, GERD, fatty liver disease with fibrosis last seen 09/2024 coming in for follow up. Presenting for a follow-up visit, reporting a significant weight gain of almost 20 pounds since the summer, which she attributes to stress and lack of exercise. She has been under considerable stress related to her boyfriend's personal issues. She reports new symptoms of ear drainage and developing small sores and itchiness in one ear. She is also snoring more frequently, and while she was told she had sleep apnea prior to a past surgery, she was never formally tested for it. Her blood pressure, which had previously improved with weight loss, is now elevated again. [facility] Medical History Allergy-induced asthma COVID-19 vaccine series completed GERD (gastroesophageal reflux disease) Morbid obesity Hypothyroidism Morbid obesity Allergic rhinitis HTN (hypertension) Surgical History S/P laparoscopic sleeve gastrectomy H/O colonoscopy Hx of myringotomy History of tonsillectomy Family History Father Hypertension Cardiac disease Mother Hypertension Cardiac disease Smoker Cancer Maternal Aunt Breast cancer Brother Asthma Substance use disorder Social History Housing: House Are you a primary care program director to a significant other at home: No Do you presently have visiting nurse or other home services: No Alcohol intake: current Alcohol intake frequency: holidays/special occasions only Patient Tobacco Use Status: Never used Tobacco e-Cigarette/Vaping Use: Former Use Second Hand Smoke Exposure: No service: No Current occupational status: employed Cognitive needs: No Hearing needs: No Vision needs: Yes (glasses) Female Reproductive History Menstrual Age of Menarche: 12 Questionnaire Thrive Questionnaire Date Thrive assessed: 03/22/25 I am a: Patient What is your living situation today?: I have a steady place to live Within the past 12 months, did the food you bought not last and you didn't have the money to get more?: Never true Within the past 12 months, did you worry whether your food would run out before you got money to buy more?: Never true Do you have trouble paying for medicines?: No Do you have trouble getting transportation to medical appointments?: No Do you have trouble paying your heating and electricity bill?: No Do you have trouble taking care of your child, family member or friend?: No Do you have trouble with day-to-day activities such as bathing, preparing meals, shopping, managing finances, etc.?: No Are you currently unemployed and looking for a job?: No Are you interested in more education?: No Please select the resources that you would like help with: None Currently or been in a relationship where the following occur: No concerns reported THRIVE Score: 0 KARLA-7 AMB Questionnaire KARLA-7 Date KARLA - 7 assessed: 09/19/24 Source: Developed by Drs. Marco Garcia, Shannon Guajardo, Shayne Daigle and colleagues, with an educational [place] from [employer]. Review of Systems Const Denies body aches, Denies chills, Denies fever(s), Denies headache(s) and Denies poor appetite Eyes Reports no additional complaints ENT Denies dizziness and Denies headache(s) Card Denies chest pain, Denies edema, Denies lightheadedness and Denies dyspnea Resp Denies cough and Denies dyspnea GI Denies abdominal pain, Denies nausea and Denies vomiting Reports no additional complaints Musc Reports no additional complaints and Denies abnormal gait Skin/Breast Reports system reviewed and no additional complaints, except as documented Neuro Denies abnormal gait, Denies dizziness and Denies headache(s) Psych Reports no additional complaints Physical exam (Primary Care) Vital Signs: Last Vital Signs Pulse 67 03/22/25 16:06 Resp 18 03/22/25 16:06 BP 150/98 H 03/22/25 16:06 Pulse Ox 98 03/22/25 16:06 Oxygen Delivery Method Room Air 03/22/25 16:06 BMI result Body Mass Index 44.1 Tobacco/Smoking Status: Tobacco use Status Tobacco use date assessed 03/22/25 03/22/25 16:14 Patient Tobacco Use Status Never used Tobacco 03/22/25 16:14 e-Cigarette/Vaping Use Former Use 03/22/25 16:14 Thrive Assessment: Date of Thrive Assessment Date Thrive assessed 03/22/25 03/22/25 16:14 Currently or been in a relationship where the following occur: No concerns reported Const General: cooperative, healthy appearing, comfortable and no acute distress Orientation/consciousness: patient oriented x3 HENMT Head: Yes normocephalic Ears: hearing grossly normal bilaterally General nose exam: Normal external nose present Eyes General: appearance normal, both eyes and all related structures Conjunctivae: conjunctivae normal Neck Neck: Yes full ROM and Yes no lymphadenopathy Resp Effort & Inspection: normal respiratory effort Auscultation: clear to auscultation bilaterally, no crackles, no rales, no rhonchi and no wheezes Cardio Rate: regular rate Rhythm: regular rhythm Skin General skin exam: no rashes or lesions noted Neuro General: patient oriented x3 Gait exam (Neuro): Normal gait present Extrem General: Yes normal to inspection, Yes full ROM and No edema Psych Affect: normal affect Attitude: cooperative Insight: Good insight present (Psych) Judgement: Good judgement present (Psych) Coding Level of Care Code Est Pt Level 3 (18336) Diagnoses Obesity E66.9 Hypertension I10 Hypothyroidism E03.9 GERD (gastroesophageal reflux disease) K21.9 Hypercholesterolemia E78.00 Dermatitis L30.9 Assessment & Plan Assessment & Plan (1) Obesity: Code(s): E66.9 - Obesity, unspecified Category: Medical Plan: Healthy diet and regular exercise is encouraged. (2) Hypertension: Code(s): I10 - Essential (primary) hypertension Category: Medical Plan: The patient's blood pressure is elevated at 150/100 mmHg, likely secondary to recent weight gain and stress. We will defer restarting antihypertensive medication at this time. The plan is for the patient to monitor her blood pressure daily for one week at her workplace, avoiding inaccurate wrist cuffs, and to report the readings via the patient portal. Lifestyle modifications, including a low-salt diet and stress reduction, were discussed. A follow-up appointment is scheduled in six weeks to re-evaluate her blood pressure and determine if medication is needed. (3) Hypothyroidism: Code(s): E03.9 - Hypothyroidism, unspecified Category: Medical Plan: Most recent blood work within normal limits. Continue on levothyroxine 10 mcg (4) GERD (gastroesophageal reflux disease): Code(s): K21.9 - Gastro-esophageal reflux disease without esophagitis Category: Medical Plan: Avoid trigger foods such as citrus, tomato products, soda, caffeine, spicy foods and other foods that may be irritating to your stomach. Avoid laying flat 3-4 hours after eating and elevate the head of the bed 30 degrees to prevent acid from moving into the esophagus. Improved with bariatric surgery. (5) Hypercholesterolemia: Code(s): E78.00 - Pure hypercholesterolemia, unspecified Category: Medical Plan: Avoid foods that are high in cholesterol such as red meat, fried foods, eggs and baked goods. Triglyceride goal of less than 150 and LDL goal of less than 130. At goal on last labs. (6) Dermatitis: Code(s): L30.9 - Dermatitis, unspecified Category: Medical Plan: The patient complains of itchiness and sores in one ear. Examination revealed red, irritated, and flaky dry skin consistent with dermatitis, with no signs of active infection. I have prescribed steroid ear drops to be used for no more than 14 days to alleviate inflammation and itching. The patient was instructed to follow up if symptoms do not resolve. Plan This note was constructed using voice recognition software. While every effort has been made to ensure accuracy and beater and pulper feeder, still areas may have been included sometimes these areas may affect the content or meeting of the given symptoms. Total time spent caring for the patient today was 20 minutes. This includes time spent before the visit reviewing the chart, time spent during the visit, and time spent after the visit and documentation. Patient was informed and verbally consented to the use of an ambient scribe for clinic note documentation during this visit. Orders: Orders TSH reflex Free T4 6 Months E03.9 - Hypothyroidism, unspecified Vitamin B12 and Folate 6 Months Z13.21 - Encounter for screening for nutritional disorder Vitamin D 25-OH Total 6 Months Z13.21 - Encounter for screening for nutritional disorder Free T4 (Free Thyroxine) 6 Months E03.9 - Hypothyroidism, unspecified Complete Blood Count Auto Diff 6 Months I10 - Essential (primary) hypertension, Z13.0 - Encounter for screening for diseases of the blood and blood-forming organs and certain disorders involving the immune mechanism Comprehensive Met. Panel 6 Months I10 - Essential (primary) hypertension, Z00.00 - Encounter for general adult medical examination without abnormal findings Lipid Panel 6 Months E78.00 - Pure hypercholesterolemia, unspecified UA CC w/rflx Micro + Cult 03/22/25 R35.89 - Other polyuria Medications: New fluocinolone acetonide oil 0.01% (DermOtic Oil) 5 drps otic (ear) left BID 20 mL 0RF 7 days
[2025-03-22 16:06] VITALS: BP 150/98; PULSE 67; RESP 18; O2SAT 98; BMI 44.1
== END 2025-03-22 16:34 | disposition home or self-care (01) ==
LOC: HO.HMCH 15:47
DX: I10 Essential (primary) hypertension (principal); E66.9 Obesity, unspecified; Z68.41 Body mass index [BMI] 40.0-44.9, adult; E03.9 Hypothyroidism, unspecified; K21.9 Gastro-esophageal reflux disease without esophagitis; E78.00 Pure hypercholesterolemia, unspecified; L30.9 Dermatitis, unspecified